=== PATIENT | male | born 1960 | race Caucasian/White ===

== ENCOUNTER 2016-12-03 09:34 | Emergency (ER) | payer BC ==
[2016-12-03] MEDS ORDERED: RX INFO: IV CONTRAST WAS GIVEN 1 EACH MISC MISCELLANE PRN (10:38)
[2016-12-03] MEDS ORDERED: HYDROmorphone 1 MG/ML 1 ML SYRINGE IVP STA (10:38)
[2016-12-03] MEDS ORDERED: SODIUM CHLORIDE 0.9% 1,000 ML IV STA (10:38)
[2016-12-03] MEDS ORDERED: IOHEXOL 350 MG/ML 25 ML BOTTLE (ORAL USE) PO PRN (10:38)
[2016-12-03] MEDS ORDERED: METOCLOPRAMIDE 5 MG/ML 2 ML VIAL IVP STA (10:38)
[2016-12-03] MEDS ORDERED: FAMOTIDINE 20 MG/2 ML VIAL IV STA (10:40)
--- NOTE | 2016-12-03 10:42 | ED ---
General Adult HPI - General Chief complaint: Abdominal Pain Stated complaint: POSS KIIDNEY STONES Time Seen by Provider: 12/03/16 10:30 Source: patient, family, RN notes reviewed Mode of arrival: wheelchair Limitations: no limitations - History of Present Illness Initial comments: Patient is a pleasant 56-year-old male presenting to the emergency department complaining of abdominal discomfort. Onset of symptoms was around 4 AM. Symptoms were fairly sudden onset. Discomfort is lower abdomen bilaterally with some rotation towards the lower back bilaterally. Patient did have similar symptoms around 12 years ago associated with kidney stone. No hematuria or dysuria. Patient has had nausea and vomiting. No constipation or diarrhea. No chest pain. Discomfort has been persistent and severe. Patient was sweaty earlier. No fever. Patient also does have a history of bariatric surgery and stomach reconstruction. - Related Data Home Medications Medication Instructions Recorded Confirmed Calcium Carbonate [Calcium] 600 mg PO DAILY 12/03/16 12/03/16 Cholecalciferol (Vitamin D3) 10,000 unit PO DAILY 12/03/16 12/03/16 [Vitamin D3] Ferrous Sulfate [Feosol] 325 mg PO DAILY 12/03/16 12/03/16 L.acidoph,Paracasei, B.lactis 1 cap PO DAILY 12/03/16 12/03/16 [Probiotic] Loperamide HCl [Imodium A-D] 2 - 4 mg PO BID PRN 12/03/16 12/03/16 Potassium 99 mg PO DAILY 12/03/16 12/03/16 Vitamin A 10,000 unit PO DAILY 12/03/16 12/03/16 Vitamin E 1,000 unit PO DAILY 12/03/16 12/03/16 Zinc 50 mg PO DAILY 12/03/16 12/03/16 Previous Rx's Medication Instructions Recorded Hydrocodone/Acetaminophen [[place] 2 each PO Q6HR PRN #20 tab 12/03/16 5-325] Metoclopramide HCl [Reglan] 10 mg PO Q6HR PRN #15 tablet 12/03/16 Allergies Allergy/AdvReac Type Severity Reaction Status Date / Time No Known Allergies Allergy Verified 12/03/16 13:08 Review of Systems ROS Statement: Those systems with pertinent positive or pertinent negative responses have been documented in the HPI. ROS Other: All systems not noted in ROS Statement are negative. Constitutional: Denies: fever Eyes: Denies: eye pain ENT: Denies: ear pain Respiratory: Denies: cough Cardiovascular: Denies: chest pain Endocrine: Denies: fatigue Gastrointestinal: Reports: abdominal pain, nausea, vomiting Genitourinary: Denies: urgency, dysuria, hematuria Musculoskeletal: Reports: back pain (From the abdomen) Skin: Denies: rash Past Medical History Past Medical History: No Reported History Additional Past Surgical History / Comment(s): duodenal sleeve General Exam Limitations: no limitations General appearance: alert, in no apparent distress Head exam: Present: atraumatic Eye exam: Present: normal appearance, PERRL ENT exam: Present: normal oropharynx Neck exam: Present: normal inspection Respiratory exam: Present: normal lung sounds bilaterally Cardiovascular Exam: Present: regular rate, normal rhythm GI/Abdominal exam: Present: soft, tenderness (Moderate tenderness lower abdomen and epigastric region.), normal bowel sounds. Absent: distended, guarding, rebound, rigid, pulsatile mass Extremities exam: Present: normal inspection Back exam: Present: tenderness (Mild tenderness lower back) Neurological exam: Present: alert Psychiatric exam: Present: normal affect, normal mood Skin exam: Absent: rash Course Vital Signs 12/03/16 10:02 Temperature 97 F L Pulse Rate 67 Respiratory 20 Rate Blood Pressure 164/77 O2 Sat by Pulse 98 Oximetry Medical Decision Making - Medical Decision Making Patient reexamined and improved. Patient states discomfort is tolerable and requests discharge. Patient is receptive to pain medication prior to discharge. Patient and family updated on results and need for follow-up. - Lab Data Result diagrams: 12/03/16 10:50 12/03/16 10:50 Lab Results 12/03/16 12/03/16 12/03/16 Range/Units 10:50 10:50 10:50 WBC 9.1 (3.8-10.6) k/uL RBC 4.61 (4.30-5.90) m/uL Hgb 14.1 (13.0-17.5) gm/dL Hct 42.5 (39.0-53.0) % MCV 92.3 (80.0-100.0) fL MCH 30.6 (25.0-35.0) pg MCHC 33.1 (31.0-37.0) g/dL RDW 12.9 (11.5-15.5) % Plt Count 188 (150-450) k/uL Neutrophils % 93 % Lymphocytes % 4 % Monocytes % 3 % Eosinophils % 0 % Basophils % 0 % Neutrophils # 8.4 H (1.3-7.7) k/uL Lymphocytes # 0.4 L (1.0-4.8) k/uL Monocytes # 0.2 (0-1.0) k/uL Eosinophils # 0.0 (0-0.7) k/uL Basophils # 0.0 (0-0.2) k/uL PT 11.1 (9.0-12.0) sec INR 1.1 (<1.1) APTT 24.7 (22.0-30.0) sec Sodium 141 (137-145) mmol/L Potassium 4.6 (3.5-5.1) mmol/L Chloride 103 (98-107) mmol/L Carbon Dioxide 28 (22-30) mmol/L Anion Gap 10 mmol/L BUN 13 (9-20) mg/dL Creatinine 0.79 (0.66-1.25) mg/dL Est GFR (MDRD) Af Amer >60 (>60 ml/min/1.73 sqM) Est GFR (MDRD) Non-Af >60 (>60 ml/min/1.73 sqM) Glucose 159 H (74-99) mg/dL Calcium 9.1 (8.4-10.2) mg/dL Total Bilirubin 1.0 (0.2-1.3) mg/dL AST 19 (17-59) U/L ALT 30 (21-72) U/L Alkaline Phosphatase 80 (38-126) U/L Total Protein 7.2 (6.3-8.2) g/dL Albumin 4.5 (3.5-5.0) g/dL Amylase 69 (30-110) U/L Lipase 93 (23-300) U/L Urine Color Urine Appearance (Clear) Urine pH (5.0-8.0) Ur Specific [place] (1.001-1.035) Urine Protein (Negative) Urine Glucose (UA) (Negative) Urine Ketones (Negative) Urine Blood (Negative) Urine Nitrate (Negative) Urine Bilirubin (Negative) Urine Urobilinogen (<2.0) mg/dL Ur Leukocyte Esterase (Negative) Urine RBC (0-5) /hpf Urine WBC (0-5) /hpf Ur Squamous Epith Cells (0-4) /hpf Urine Mucus (None) /hpf Urine Yeast (Budding) (None) /hpf 12/03/16 Range/Units 10:50 WBC (3.8-10.6) k/uL RBC (4.30-5.90) m/uL Hgb (13.0-17.5) gm/dL Hct (39.0-53.0) % MCV (80.0-100.0) fL MCH (25.0-35.0) pg MCHC (31.0-37.0) g/dL RDW (11.5-15.5) % Plt Count (150-450) k/uL Neutrophils % % Lymphocytes % % Monocytes % % Eosinophils % % Basophils % % Neutrophils # (1.3-7.7) k/uL Lymphocytes # (1.0-4.8) k/uL Monocytes # (0-1.0) k/uL Eosinophils # (0-0.7) k/uL Basophils # (0-0.2) k/uL PT (9.0-12.0) sec INR (<1.1) APTT (22.0-30.0) sec Sodium (137-145) mmol/L Potassium (3.5-5.1) mmol/L Chloride (98-107) mmol/L Carbon Dioxide (22-30) mmol/L Anion Gap mmol/L BUN (9-20) mg/dL Creatinine (0.66-1.25) mg/dL Est GFR (MDRD) Af Amer (>60 ml/min/1.73 sqM) Est GFR (MDRD) Non-Af (>60 ml/min/1.73 sqM) Glucose (74-99) mg/dL Calcium (8.4-10.2) mg/dL Total Bilirubin (0.2-1.3) mg/dL AST (17-59) U/L ALT (21-72) U/L Alkaline Phosphatase (38-126) U/L Total Protein (6.3-8.2) g/dL Albumin (3.5-5.0) g/dL Amylase (30-110) U/L Lipase (23-300) U/L Urine Color Light Red Urine Appearance Cloudy (Clear) Urine pH 5.5 (5.0-8.0) Ur Specific [place] 1.015 (1.001-1.035) Urine Protein 1+ H (Negative) Urine Glucose (UA) Negative (Negative) Urine Ketones 2+ H (Negative) Urine Blood Large H (Negative) Urine Nitrate Negative (Negative) Urine Bilirubin Negative (Negative) Urine Urobilinogen <2.0 (<2.0) mg/dL Ur Leukocyte Esterase Negative (Negative) Urine RBC >182 H (0-5) /hpf Urine WBC 12 H (0-5) /hpf Ur Squamous Epith Cells 1 (0-4) /hpf Urine Mucus Rare H (None) /hpf Urine Yeast (Budding) Moderate H (None) /hpf - Radiology Data Radiology results: report reviewed (Computed tomography scan of the abdomen and pelvis shows 6 mm stone left UVJ.), image reviewed (Abdominal x-ray shows pelvic calcification) Disposition Clinical Impression: Ureterolithiasis Disposition: HOME SELF-CARE Condition: Stable Instructions: Kidney Stones (ED) Additional Instructions: Please follow-up with primary care physician and urology next week. Return for intolerable pain, intractable vomiting, fevers, worsening symptoms or other concerns. Prescriptions: Hydrocodone/Acetaminophen [[place] 5-325] 2 each PO Q6HR PRN #20 tab PRN Reason: Pain Metoclopramide HCl [Reglan] 10 mg PO Q6HR PRN #15 tablet PRN Reason: Nausea Referrals: Bob Santiago MD [Primary Care Provider] - 1-2 days Yaw Hagan MD [STAFF PHYSICIAN] - 1-2 days
[2016-12-03 11:19] LABS: Basophils % (A) 0 %; CH 31.7; CHCM 34.6; Eosinophils % (A) 0 %; HCT 42.5 % (39.0-53.0); HDW 2.81; HGB 14.1 gm/dL (13.0-17.5); Luc # (Auto) 0.04; Luc % (Auto) 0; Lymphocytes # (A) 0.4 k/uL (1.0-4.8); Lymphocytes % (A) 4 %; MCH 30.6 pg (25.0-35.0); MCHC 33.1 g/dL (31.0-37.0); MCV 92.3 fL (80.0-100.0); Mean Platelet Volume 8.4; Monocytes # (A) 0.2 k/uL (0-1.0); Monocytes % (A) 3 %; Neutrophils # (A) 8.4 k/uL (1.3-7.7); Neutrophils % (A) 93 %; RBC 4.61 m/uL (4.30-5.90); RDW 12.9 % (11.5-15.5); WBC 9.1 k/uL (3.8-10.6); WBC (Perox) 9.46
[2016-12-03 11:27] LABS: Appearance,Urine Cloudy (Clear); Bilirubin,Urine Negative (Negative); Glucose,Urine (UA) Negative (Negative); Ketones,Urine 2+ (Negative); Leukocyte Esterase,Urine Negative (Negative); Mucus,Urine Rare /hpf; Nitrite,Urine Negative (Negative); PH, Urine 5.5 (5.0-8.0); Particle Count 5330; Protein,Urine 1+ (Negative); RBC,Urine >182 /hpf (0-5); Specific Gravity,Urine 1.015 (1.001-1.035); Squamous Epithelial Cell,Urine 1 /hpf (0-4); UA Billing (MACRO vs. MICRO) MICRO; Urobilinogen,Urine <2.0 mg/dL (<2.0); WBC,Urine 12 /hpf (0-5)
[2016-12-03 11:29] LABS: ALT 30 U/L (21-72); AST 19 U/L (17-59); Alkaline Phosphatase 80 U/L (38-126); Amylase 69 U/L (30-110); Anion Gap 10 mmol/L; Blood Urea Nitrogen 13 mg/dL (9-20); Calcium 9.1 mg/dL (8.4-10.2); Carbon Dioxide 28 mmol/L (22-30); Chloride 103 mmol/L (98-107); Glucose 159 mg/dL (74-99); Non-African American GFR(MDRD) >60 (>60 ml/min/1.73 sqM); Potassium 4.6 mmol/L (3.5-5.1); Sodium 141 mmol/L (137-145); Total Protein 7.2 g/dL (6.3-8.2)
[2016-12-03 11:39] LABS: INR 1.1 (<1.1); Partial Thromboplastin Time 24.7 sec (22.0-30.0); Prothrombin Time 11.1 sec (9.0-12.0)
--- NOTE | 2016-12-03 12:06 | XR ---
EXAMINATION TYPE: XR abdomen 1V DATE OF EXAM: 12/03/2016 11:33 AM COMPARISON: NONE INDICATION: Pain TECHNIQUE: Single view abdomen upright position FINDINGS: There is a normal bowel gas pattern. Psoas margins are normal. No organomegaly is present. IMPRESSION: 1. Unremarkable Abdomen
--- NOTE | 2016-12-03 12:55 | CT ---
EXAMINATION TYPE: CT abdomen pelvis w con DATE OF EXAM: 12/03/2016 12:24 PM COMPARISON: NONE INDICATION: Bilateral flank pain DLP: 572.5 mGycm, Automated exposure control for dose reduction was used. CONTRAST: 100 ml mL of Omnipaque 300. Study performed with Oral Contrast TECHNIQUE: Axial images were obtained from above the diaphragm to the pubic rami in the axial plane a t 5 mm thick sections. Reconstructed images are reviewed on the computer in the coronal plane. FINDINGS: Limited CT sections are obtained the lung bases. The lung bases are clear. Small hiatal hernia is p resent. CT ABDOMEN: Post gastric surgery is present. Liver: Normal Spleen: Normal Pancreas: Normal Adrenal glands: The adrenal glands are normal. Gallbladder: Normal Kidneys: There is delayed excretion from the left kidney compared to the right. There is a mild right hydronephrosis and right hydroureter. At the left ureterovesical junction there is an obstructing 0. 6 cm calcification. No masses are evident. Cortical renal cyst is present on the left kidney. Delaye d images were obtained through the kidneys, which remain unremarkable. Aorta: Vascular calcification is within the aorta. Inferior vena cava: Normal. CT PELVIS: Loops of bowel within the abdomen and pelvis are normal. Appendix: Not visualized Urinary bladder: Normal. Genitourinary structures: Calcification at the left ureterovesical junction. Osseous structures: No suspicious lytic or sclerotic lesions. IMPRESSIONS: 1. 0.6 cm left ureterovesical junction stone causing mild left hydronephrosis and delayed excretion on the left compared to the right.
[2016-12-03] MEDS ORDERED: KETOROLAC 30 MG/ML 1 ML VIAL IVP STA (13:50)
[2016-12-03] MEDS ORDERED: ONDANSETRON 4 MG/2 ML VIAL IVP STA (13:50)
[2016-12-03 14:10] VITALS: BP 130/80; PULSE 81; RESP 18; TEMP 97.9
== END 2016-12-03 14:14 | disposition home or self-care (01) ==
LOC: EC 09:34
DX: N20.1 Calculus of ureter (principal); Z87.442 Personal history of urinary calculi; Z98.84 Bariatric surgery status; Z79.899 Other long term (current) drug therapy
CPT/HCPCS: 99284; 96374; 96375; 96361; 36415; 80053; 82150; 83690; 85025; 85610; 85730; 81001; 74000; 74177; J2765; J2405; J1885; J1170; Q9967

== ENCOUNTER → 2019-10-09 | Outpatient (CLI) | payer BC ==
[2019-10-09 07:50] LABS: Prothrombin Time 10.8 sec (9.0-12.0)
[2019-10-09 08:44] LABS: Basophils % (A) 1 %; Eosinophils # (A) 0.1 k/uL (0-0.7); Eosinophils % (A) 3 %; HCT 39.9 % (39.0-53.0); HGB 13.4 gm/dL (13.0-17.5); Lymphocytes # (A) 1.1 k/uL (1.0-4.8); Lymphocytes % (A) 23 %; MCH 32.3 pg (25.0-35.0); MCHC 33.7 g/dL (31.0-37.0); MCV 95.8 fL (80.0-100.0); Mean Platelet Volume 6.8; Monocytes # (A) 0.4 k/uL (0-1.0); Monocytes % (A) 8 %; Neutrophils # (A) 2.9 k/uL (1.3-7.7); Neutrophils % (A) 63 %; Platelet Count 195 k/uL (150-450); RBC 4.16 m/uL (4.30-5.90); RDW 12.4 % (11.5-15.5); WBC 4.6 k/uL (3.8-10.6)
[2019-10-09 11:28] LABS: % Iron Saturation 28.52 (15.00-50.00); ALT 39 U/L (10-49); AST 36 U/L (14-35); African American GFR (CKD) 114.9 (60.0-200.0); Albumin/Globulin Ratio 2.11 (1.60-3.17); Alkaline Phosphatase 67 U/L (41-126); Calcium 8.7 mg/dL (8.7-10.3); Chloride 108 mmol/L (96-109); Chol/HDL Ratio 2.52; Cholesterol 116 mg/dL (0-200); Globulin 1.8 g/dL (1.6-3.3); Glucose 117 mg/dL (70-110); Iron 79 ug/dL (65-175); Magnesium 1.8 mg/dL (1.5-2.4); Non-African American GFR(CKD) 99.2 (60.0-200.0); Potassium 4.3 mmol/L (3.5-5.5); Sodium 141 mmol/L (135-145); Total Bilirubin 0.7 mg/dL (0.3-1.2); Total Iron Binding Capacity 277 ug/dL (228-460); Total Protein 5.6 g/dL (6.2-8.2); Triglycerides <50.0 mg/dL (0.0-149.0); Uric Acid 3.8 mg/dL (3.7-8.7)
[2019-10-09 11:36] LABS: Ferritin 116.2 ng/mL (22.0-322.0)
[2019-10-09 11:37] LABS: Folate, Serum 3.3 ng/mL
[2019-10-11 13:12] LABS: Zinc, Serum 45 ug/dL (60-130)
[2019-10-12 08:18] LABS: Vit B1(Thiamine) 63 ug/L (38-122)
[2019-10-12 09:25] LABS: Vitamin A 36 ug/dL (38-106)
[2019-10-12 09:26] LABS: Vitamin E (Alpha Tocopherol) 760 ug/dL (500-1800)
[2019-10-14 17:41] LABS: Selenium 117 mcg/L (63-160)
== END | disposition home or self-care (01) ==
LOC: LABWHC1 06:54
PROVIDERS: ATTEND Physician Assistant
DX: Z00.01 Encounter for general adult medical examination with abnormal findings (principal); Z13.220 Encounter for screening for lipoid disorders; Z12.5 Encounter for screening for malignant neoplasm of prostate; Z98.84 Bariatric surgery status
CPT/HCPCS: 84255; 84425; 80061; 80053; 82607; 84446; 82728; 82525; 82746; 83540; 83550; 83735; 84550; 84590; 84630; 85025; 85610; 82306; 83970; 36415; G0103

== ENCOUNTER → 2019-12-19 | Outpatient (CLI) | payer BC ==
[2019-12-19 16:01] LABS: Hemoglobin A1C 4.6 % (4.0-6.0)
[2019-12-20 14:06] LABS: Zinc, Serum 48 ug/dL (60-130)
== END | disposition home or self-care (01) ==
LOC: LABWHC1 07:52
PROVIDERS: ATTEND Physician Assistant
DX: E61.0 Copper deficiency (principal); R73.01 Impaired fasting glucose; E60 Dietary zinc deficiency; R00.2 Palpitations
CPT/HCPCS: 36415; 82525; 83036; 84443; 84630

== ENCOUNTER 2022-05-04 12:57 | Observation (INO) | payer BC, OTHER ==
[2022-05-04] MEDS ORDERED: SODIUM CHLORIDE 0.9% 1,000 ML IV STA (15:22)
--- NOTE | 2022-05-04 15:35 | ED ---
Nausea/Vomiting/Diarrhea HPI - General Chief complaint: Nausea/Vomiting/Diarrhea Stated complaint: dehydration Time Seen by Provider: 05/04/22 15:06 Source: patient, RN notes reviewed Mode of arrival: ambulatory Limitations: no limitations - History of Present Illness Initial comments: Patient is a 62-year-old male presents to the emergency room at the direction of his primary care provider after having 4 days of nausea vomiting, multiple liquid diarrhea stools, fevers at bedtime with night sweats. He does have a past medical history significant for gastrectomy with significant intestinal shortening all elective for obesity. He reports that he had these procedures completed in 2011 at that time he weighed approximately 300+ pounds and was a an insulin-dependent diabetic on hypertensive and hyperlipidemic treatment. He reports that since his weight loss he has been on no medications other than supplementations secondary to malabsorption. He reports that he typically has several loose bowel movements a day since his bariatric surgery but notes they are typically not as watery or frequent and are without significant abdominal cramping usually. He reports that he has had no exposure to influenza or correlate. He does have a history of nephrolithiasis however he denies any flank pain but does note decreased urine output over the last several days. He complains of diffuse abdominal cramping but no tenderness on palpation. - Related Data Home Medications Medication Instructions Recorded Confirmed Calcium Carbonate [Calcium] 600 mg PO DAILY 12/03/16 12/03/16 Cholecalciferol (Vitamin D3) 10,000 unit PO DAILY 12/03/16 12/03/16 [Vitamin D3] Ferrous Sulfate [Feosol] 325 mg PO DAILY 12/03/16 12/03/16 L.acidoph,Paracasei, B.lactis 1 cap PO DAILY 12/03/16 12/03/16 [Probiotic] Loperamide HCl [Imodium A-D] 2 - 4 mg PO BID PRN 12/03/16 12/03/16 Potassium 99 mg PO DAILY 12/03/16 12/03/16 Vitamin A (10,000 Aj=3617 Mcg) 10,000 unit PO DAILY 12/03/16 12/03/16 Vitamin E (Dl,Tocopheryl Acet) 1,000 unit PO DAILY 12/03/16 12/03/16 [Vitamin E] Zinc 50 mg PO DAILY 12/03/16 12/03/16 Previous Rx's Medication Instructions Recorded Hydrocodone/Acetaminophen [[place] 2 each PO Q6HR PRN #20 tab 12/03/16 5-325] Metoclopramide HCl [Reglan] 10 mg PO Q6HR PRN #15 tablet 12/03/16 Allergies Allergy/AdvReac Type Severity Reaction Status Date / Time No Known Allergies Allergy Verified 05/04/22 14:55 Review of Systems ROS Statement: Those systems with pertinent positive or pertinent negative responses have been documented in the HPI. ROS Other: All systems not noted in ROS Statement are negative. Past Medical History Past Medical History: No Reported History, GERD/Reflux History of Any Multi-Drug Resistant Organisms: None Reported Past Surgical History: Tonsillectomy Additional Past Surgical History / Comment(s): duodenal sleeve man made, 8oz pouch, 14inches of intestines, experimental bariatric surgery 2012 Past Psychological History: No Psychological Hx Reported Smoking Status: Light tobacco smoker Past Alcohol Use History: Rare Past Drug Use History: Marijuana General Exam Limitations: no limitations General appearance: alert, in no apparent distress Head exam: Present: atraumatic, normocephalic, normal inspection Eye exam: Present: normal appearance, PERRL, EOMI. Absent: scleral icterus, conjunctival injection, periorbital swelling ENT exam: Present: normal exam, mucous membranes moist Neck exam: Present: normal inspection. Absent: tenderness, meningismus, lymphadenopathy Respiratory exam: Present: normal lung sounds bilaterally. Absent: respiratory distress, wheezes, rales, rhonchi, stridor Cardiovascular Exam: Present: regular rate, normal rhythm, normal heart sounds. Absent: systolic murmur, diastolic murmur, rubs, gallop, clicks GI/Abdominal exam: Present: soft, normal bowel sounds. Absent: distended, tenderness, guarding, rebound, rigid, organomegaly, mass Rectal exam: Present: deferred Extremities exam: Present: normal inspection. Absent: pedal edema, joint swelling Neurological exam: Present: alert, oriented X3, CN II-XII intact Psychiatric exam: Present: normal affect, normal mood Skin exam: Present: warm, dry, intact, pallor Course Vital Signs 05/04/22 05/04/22 14:47 17:26 Temperature 98.2 F 97.4 F L Pulse Rate 75 60 Respiratory 18 18 Rate Blood Pressure 125/89 121/71 O2 Sat by Pulse 99 98 Oximetry - Reevaluation(s) Reevaluation #1: CBC unremarkable, BUN normal creatinine slightly elevated at 1.22 likely the baseline CKD status stage II. Still awaiting urine results. Covid negative, still awaiting influenza results. Given lack of infectious etiology evidence and severity of nausea and vomiting with previous inability to vomit at this time will check computed tomography scan in the setting of previous significant abdominal surgery. Time: 17:08 Reevaluation #2: CT of the abdomen with worsening of dilated gallbladder. In the setting of decreased urine output, nausea, vomiting and intermittent abdominal pain will plan for further evaluation by surgery. Patient requests Dr. Cordova as surgeon. Case discussed with Dr. Cordova. Dr. Cordova advised keep patient nothing by mouth, order ultrasound of the abdomen and admit patient to medicine. Dr. Reji padilla for his primary care doctor Pamela notified of medical admission. Time: 21:29 Medical Decision Making - Medical Decision Making Will defer to imaging until lab studies are resulted. We'll check CBC, CMP, urinalysis, amylase, lipase along with COVID and influenza swabs. Given decreased urinary output will start on IV fluids with one normal saline bolus at this time and evaluate for electrolyte and further hydration needs after CMP resulted. - Lab Data Result diagrams: 05/04/22 16:06 05/04/22 16:06 Lab Results 05/04/22 05/04/22 05/04/22 Range/Units 16:06 16:06 16:06 WBC 4.0 (3.8-10.6) k/uL RBC 4.31 (4.30-5.90) m/uL Hgb 14.4 (13.0-17.5) gm/dL Hct 42.3 (39.0-53.0) % MCV 98.2 (80.0-100.0) fL MCH 33.4 (25.0-35.0) pg MCHC 34.0 (31.0-37.0) g/dL RDW 13.1 (11.5-15.5) % Plt Count 207 (150-450) k/uL MPV 8.5 Neutrophils % (Manual) 49 % Band Neuts % (Manual) 10 % Lymphocytes % (Manual) 17 % Monocytes % (Manual) 23 % Basophils % (Manual) 1 % Neutrophils # (Manual) 2.30 (1.3-7.7) k/uL Lymphocytes # (Manual) 0.68 L (1.0-4.8) k/uL Monocytes # (Manual) 0.92 (0-1.0) k/uL Basophils # (Manual) 0.04 (0-0.2) k/uL Nucleated RBCs 0 (0-0) /100 WBC Manual Slide Review Performed RBC Morphology Normal Sodium 137 (137-145) mmol/L Potassium 3.7 (3.5-5.1) mmol/L Chloride 110 H (98-107) mmol/L Carbon Dioxide 20 L (22-30) mmol/L Anion Gap 7 mmol/L BUN 18 (9-20) mg/dL Creatinine 1.22 (0.66-1.25) mg/dL Est GFR (CKD-EPI)AfAm 74 (>60 ml/min/1.73 sqM) Est GFR (CKD-EPI)NonAf 64 (>60 ml/min/1.73 sqM) Glucose 128 H (74-99) mg/dL Calcium 8.5 (8.4-10.2) mg/dL Total Bilirubin 0.9 (0.2-1.3) mg/dL AST 15 L (17-59) U/L ALT 26 (4-49) U/L Alkaline Phosphatase 61 (38-126) U/L Total Protein 6.5 (6.3-8.2) g/dL Albumin 3.8 (3.5-5.0) g/dL Amylase 33 (30-110) U/L Lipase 37 (23-300) U/L Urine Color Urine Appearance (Clear) Urine pH (5.0-8.0) Ur Specific [place] (1.001-1.035) Urine Protein (Negative) Urine Glucose (UA) (Negative) Urine Ketones (Negative) Urine Blood (Negative) Urine Nitrite (Negative) Urine Bilirubin (Negative) Urine Urobilinogen (<2.0) mg/dL Ur Leukocyte Esterase (Negative) Urine RBC (0-5) /hpf Urine WBC (0-5) /hpf Ur Squamous Epith Cells (0-4) /hpf Hyaline Casts (0-2) /lpf Urine Mucus (None) /hpf Coronavirus (PCR) (Not Detectd) Influenza Type A RNA Not Detected (Not Detectd) Influenza Type B (PCR) Not Detected (Not Detectd) 05/04/22 05/04/22 Range/Units 16:06 18:20 WBC (3.8-10.6) k/uL RBC (4.30-5.90) m/uL Hgb (13.0-17.5) gm/dL Hct (39.0-53.0) % MCV (80.0-100.0) fL MCH (25.0-35.0) pg MCHC (31.0-37.0) g/dL RDW (11.5-15.5) % Plt Count (150-450) k/uL MPV Neutrophils % (Manual) % Band Neuts % (Manual) % Lymphocytes % (Manual) % Monocytes % (Manual) % Basophils % (Manual) % Neutrophils # (Manual) (1.3-7.7) k/uL Lymphocytes # (Manual) (1.0-4.8) k/uL Monocytes # (Manual) (0-1.0) k/uL Basophils # (Manual) (0-0.2) k/uL Nucleated RBCs (0-0) /100 WBC Manual Slide Review RBC Morphology Sodium (137-145) mmol/L Potassium (3.5-5.1) mmol/L Chloride (98-107) mmol/L Carbon Dioxide (22-30) mmol/L Anion Gap mmol/L BUN (9-20) mg/dL Creatinine (0.66-1.25) mg/dL Est GFR (CKD-EPI)AfAm (>60 ml/min/1.73 sqM) Est GFR (CKD-EPI)NonAf (>60 ml/min/1.73 sqM) Glucose (74-99) mg/dL Calcium (8.4-10.2) mg/dL Total Bilirubin (0.2-1.3) mg/dL AST (17-59) U/L ALT (4-49) U/L Alkaline Phosphatase (38-126) U/L Total Protein (6.3-8.2) g/dL Albumin (3.5-5.0) g/dL Amylase (30-110) U/L Lipase (23-300) U/L Urine Color Yellow Urine Appearance Clear (Clear) Urine pH 6.0 (5.0-8.0) Ur Specific [place] >1.050 H (1.001-1.035) Urine Protein 1+ H (Negative) Urine Glucose (UA) Negative (Negative) Urine Ketones Negative (Negative) Urine Blood Negative (Negative) Urine Nitrite Negative (Negative) Urine Bilirubin Negative (Negative) Urine Urobilinogen <2.0 (<2.0) mg/dL Ur Leukocyte Esterase Negative (Negative) Urine RBC 1 (0-5) /hpf Urine WBC 4 (0-5) /hpf Ur Squamous Epith Cells 1 (0-4) /hpf Hyaline Casts 25 H (0-2) /lpf Urine Mucus Moderate H (None) /hpf Coronavirus (PCR) Not Detected (Not Detectd) Influenza Type A RNA (Not Detectd) Influenza Type B (PCR) (Not Detectd) - Radiology Data Radiology results: report reviewed, image reviewed CT abdomen pelvis with contrast demonstrates previous surgery. Dilated gallbladder with possible correlation to gallbladder dysfunction or terra cystitis. No dilated ducts. Nonobstructing renal calculi. There is clearing of left-sided obstruction compared to old exam. Dilated gallbladder slightly worse than old exam Disposition Clinical Impression: Cholecystitis Disposition: ADMITTED IP TO THIS HOSP Condition: Stable Is patient prescribed a controlled substance at d/c from ED?: No Referrals: Bob Santiago MD [Primary Care Provider] - 1-2 days Time of Disposition: 21:29
[2022-05-04 16:30] LABS: HCT 42.3 % (39.0-53.0); HGB 14.4 gm/dL (13.0-17.5); MCH 33.4 pg (25.0-35.0); MCV 98.2 fL (80.0-100.0); Mean Platelet Volume 8.5; Platelet Count 207 k/uL (150-450); RBC 4.31 m/uL (4.30-5.90); RDW 13.1 % (11.5-15.5)
[2022-05-04 16:40] LABS: Albumin 3.8 g/dL (3.5-5.0); Calcium 8.5 mg/dL (8.4-10.2); Potassium 3.7 mmol/L (3.5-5.1); Total Bilirubin 0.9 mg/dL (0.2-1.3); Total Protein 6.5 g/dL (6.3-8.2)
[2022-05-04 17:44] LABS: Band Neutrophils % 10 %; Basophils # (M) 0.04 k/uL (0-0.2); Lymphocytes # (M) 0.68 k/uL (1.0-4.8); Monocytes # (M) 0.92 k/uL (0-1.0); Neutrophils % (M) 49 %; Nucleated Red Blood Cells 0 /100 WBC (0-0); Total Cells Counted 100
[2022-05-04 17:45] LABS: RBC Morphology Normal
[2022-05-04 18:42] LABS: Appearance,Urine Clear (Clear); Bilirubin,Urine Negative (Negative); Blood,Urine Negative (Negative); Color,Urine Yellow; Glucose,Urine (UA) Negative (Negative); Hyaline Casts,Urine 25 /lpf (0-2); Ketones,Urine Negative (Negative); Leukocyte Esterase,Urine Negative (Negative); Mucus,Urine Moderate /hpf; Nitrite,Urine Negative (Negative); Protein,Urine 1+ (Negative); RBC,Urine 1 /hpf (0-5); Squamous Epithelial Cell,Urine 1 /hpf (0-4); Urobilinogen,Urine <2.0 mg/dL (<2.0); WBC,Urine 4 /hpf (0-5)
--- NOTE | 2022-05-04 18:49 | CT ---
EXAMINATION TYPE: CT abdomen pelvis w con DATE OF EXAM: 05/04/2022 COMPARISON: 12/03/2016 HISTORY: abdominal pain, diarrhea, fever, urine retention CT DLP: 984.5 mGycm Automated exposure control for dose reduction was used. CONTRAST: Performed with IV Contrast, patient injected with 100 mL of Isovue 300. Images obtained from the diaphragm to the floor the pelvis with IV contrast. The lung bases are clear of infiltrate. There is previous surgery at the posterior gastric fundus. Ga llbladder is large and measures 4.6 cm in diameter. Liver shows no focal defect. The bile ducts are n ot dilated. Spleen is intact. There is no pancreatic mass. There is no adrenal mass. Kidneys of normal size. There is no hydronephrosis. There is 2 mm calculus upper pole left kidney. There is a 1.5 cm cortical cyst lower pole left kidney. There is 3 mm calculu s lower pole right kidney. No retroperitoneal adenopathy. Ureters are not dilated. The bladder distends smoothly. No inguinal hernia. No free fluid in the pelvis. No pelvic mass. Lumbar vertebra show a first-degree L4-5 spondylolisthesis. 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 No l umbar compression fracture. There is moderate narrowing of L4-5 disc space. The bony pelvis appears i ntact. The hip joints are intact there's distended fluid-filled loop of bowel in the right lower quad rant with previous surgery. I do not suspect a mechanical bowel obstruction. No free air. No ascites. IMPRESSION: Previous surgery. Dilated gallbladder could relate to gallbladder dysfunction or cholecystitis. No di lated ducts. Nonobstructing renal calculi. There is clearing of the left side obstruction compared to old exam. Dilated gallbladder slightly worse than old exam.
[2022-05-04 19:18] LABS: Specific Gravity,Urine >1.050 (1.001-1.035)
[2022-05-04] MEDS ORDERED: NALOXONE 0.4 MG/ML 1 ML VIAL IV PRN (21:18)
[2022-05-04] MEDS ORDERED: ONDANSETRON 4 MG/2 ML VIAL IVP PRN (21:18)
[2022-05-04] MEDS: PANTOPRAZOLE 40 MG/10 ML VIAL IV SCH (22:21)
[2022-05-04] MEDS: DEXTROSE 5%-0.45% NACL 1,000 ML IV SCH (22:22)
--- NOTE | 2022-05-05 07:55 | US ---
EXAMINATION TYPE: US abdomen limited DATE OF EXAM: 05/05/2022 COMPARISON: CT CLINICAL HISTORY: Cholecystitis. Cholecystitis. Hx gastric surgery. EXAM MEASUREMENTS: Liver Length: 13.4 cm Gallbladder Wall: 0.20 cm CBD: 0.46 cm Right Kidney: 12.3 x 6.1 x 4.9 cm Limited due to overlying bowel gas. Pancreas: Limited due to gas. Liver: Appears coarse with increased echogenicity. Gallbladder: Appears dilated measuring 10.7 cm in length and 4.2 cm in width. Multiple hyperechoic f oci with posterior shadowing seen within the gallbladder. Evidence for sonographic Jauregui's sign: No CBD: Portions seen appear wnl Right Kidney: Measures upper limits versus minimally enlarged. Appearance of possible column of Berti n upper-mid pole. Hyperechoic focus seen lower pole: 0.3 x 0.4 x 0.3 cm. IMPRESSION: 1. Nonobstructing right renal stone. 2. Prominent gallbladder with cholelithiasis
[2022-05-05] MEDS: PANTOPRAZOLE 40 MG/10 ML VIAL IV SCH (10:14)
[2022-05-05] MEDS ORDERED: PANTOPRAZOLE 40 MG TABLET PO SCH (10:45)
--- NOTE | 2022-05-05 11:15 | P.GSCN ---
History of Present Illness Consult date: 05/05/22 History of present illness: CHIEF COMPLAINT: Diarrhea and nausea HISTORY OF PRESENT ILLNESS: This is a 62-year-old male who presented to the emergency room with complaints of severe diarrhea with multiple stools for the last 4 days. He also has been experiencing abdominal discomfort, fever as high as 101 at home, muscle aches, nausea and headache. Patient also was having low urine output. He felt dehydrated. And was referred by his PCP to come into the ER for further evaluation. Patient also has been complaining of indigestion- type symptoms for several months. Patient denies any right upper quadrant abdominal pain after eating. He had a computed tomography scan of the abdomen and pelvis done shows dilated gallbladder could relate to gallbladder dysfunc tion or cholecystitis. No dilated ducts. Nonobstructive renal calculi. There is clearing of the left-sided obstruction compared to old exam. Dilated gallbladder slightly worse than old exam. Abdominal ultrasound shows prominent gallbladder with cholelithiasis. Negative Jauregui sign. Patient reports that he is feeling better since admission and receiving IV fluids. Diarrhea has stopped. He has no abdominal pain. He does have a prior bariatric surgery 2012 with a duodenal switch which included gastrectomy and removal 14 inches of intestine. PAST MEDICAL HISTORY: Gerd PAST SURGICAL HISTORY: See list. MEDICATIONS: See list. ALLERGIES: See list. SOCIAL HISTORY: No illicit drug use. Smoker. Marijuana use. REVIEW OF SYSTEMS: CONSTITUTIONAL: Denies fever or chills. HEENT: Denies blurred vision, vision changes, or eye pain. Denies hemoptysis CARDIOVASCULAR: Denies chest pain or pressure. RESPIRATORY: No shortness of breath. GASTROINTESTINAL: See HPI for pertinent findings HEMATOLOGIC: Denies bleeding disorders. GENITOURINARY: Denies any blood in urine or increased urinary frequency. SKIN: Denies pruitis. Denies rash. PHYSICAL EXAM: VITAL SIGNS: Reviewed GENERAL: Well-developed in no acute distress. HEENT: No sclera icterus. Extraocular movements grossly intact. Moist buccal mucosa. Head is atraumatic, normocephalic. No nasal drainage. ABDOMEN: Soft. Nondistended. Nontender NEUROLOGIC: Alert and oriented. Cranial nerves II through XII grossly intact. LABORATORY DATA: WBC is 4.0 hgb 14.4 platelets 207 Sodium 137 potassium 3.7 creatinine 1.22 AST 15 ALT 26 alk phos 61 Lipase 37 Covid and influenza screening not detected IMAGING: Computed tomography scan of abdomen and ultrasound as stated above ASSESSMENT: 1. Prominent gallbladder with gallstones noted on abdominal ultrasound. No RUQ pain 2. Diarrhea, nausea with muscle aches, fever and headache 3. Indigestion 4. History of GERD 5. History of bariatric surgery PLAN: -Further recommendations forthcoming per surgeon -Keep patient nothing by mouth -Continue IV fluids -Continue supportive care Thank you for this consultation Physician Fireworks Assembler note has been reviewed by physician. Signing provider agrees with the documented findings, assessment, and plan of care. I have personally seen and examined the patient, reviewed the DICTATING MACHINE TRANSCRIBER /PAs history, exam and MDM and agree with the assessment and plan as written. Based on total visit time, I have performed more than 50% of the visit. As above: Patient presents to the hospital with complaints of abdominal pain, nausea, fevers. Patient with history of previous duodenal switch 4-5 years ago. Patient states that now he thinks about it further he has had pain in the right upper quadrant. During our evaluation he had 2 episodes of spastic pain right upper quadrant. Ultrasound shows a distended gallbladder with gallstones. Patient has not had vomiting. CAT scan shows post-bariatric surgery changes. The patient does have a hiatal hernia with his staple line extending above the diaphragm but this is unchanged from CAT scan performed in 2017. No bowel wall thickening is noted. Labs are relatively unimpressive. On examination patient has mild upper abdominal tenderness. Options discussed with the patient and his . Cholecystitis certainly remains within the differential. We'll proceed with laparoscopic cholecystectomy, possible open at this time. Case discussed with Dr. Mendoza. He would like the patient's previous bypass surgery evaluated further. Will order upper GI small bowel series for tomorrow. Risks of bleeding, infection, bile leak, bile duct injury, retained common bile duct st one, trocar injury, conversion to an open procedure, hernia, bowel perforation, anesthesia related complications were reviewed. The patient understands and wishes to proceed. Past Medical History Past Medical History: No Reported History, GERD/Reflux History of Any Multi-Drug Resistant Organisms: None Reported Past Surgical History: Tonsillectomy Additional Past Surgical History / Comment(s): duodenal sleeve man made, 8oz pouch, 14inches of intestines, experimental bariatric surgery 2012 Past Anesthesia/Blood Transfusion Reactions: No Reported Reaction Past Psychological History: No Psychological Hx Reported Smoking Status: Light tobacco smoker Past Alcohol Use History: Rare Past Drug Use History: Marijuana Medications and Allergies Home Medications Medication Instructions Recorded Confirmed Type Calcium Carbonate [Calcium] 1,200 mg PO DAILY 12/03/16 05/04/22 History Cholecalciferol (Vitamin D3) 10,000 unit PO DAILY 12/03/16 05/04/22 History [Vitamin D3] Ferrous Sulfate [Feosol] 325 mg PO DAILY 12/03/16 05/04/22 History L.acidoph,Paracasei, B.lactis 1 cap PO DAILY 12/03/16 05/04/22 History [Probiotic] Potassium 99 mg PO DAILY 12/03/16 05/04/22 History Vitamin A (10,000 Aq=3358 Mcg) 10,000 unit PO DAILY 12/03/16 05/04/22 History Vitamin E (Dl,Tocopheryl Acet) 1,000 unit PO DAILY 12/03/16 05/04/22 History [Vitamin E] Zinc 50 mg PO DAILY 12/03/16 05/04/22 History Ascorbic Acid [Vitamin C] 1,000 mg PO DAILY 05/04/22 05/04/22 History Copper Supplement 1 tab PO DAILY 05/04/22 05/04/22 History Cyanocobalamin (Vitamin B-12) 1,000 mcg PO DAILY 05/04/22 05/04/22 History [Vitamin B-12] Famotidine [Pepcid] 40 mg PO DAILY 05/04/22 05/04/22 History Omeprazole 40 mg PO DAILY 05/04/22 05/04/22 History Allergies Allergy/AdvReac Type Severity Reaction Status Date / Time No Known Allergies Allergy Verified 05/04/22 21:37 Surgical - Exam Vital Signs Temp Pulse Resp BP Pulse Ox 98.2 F 75 18 125/89 99 05/04/22 14:47 05/04/22 14:47 05/04/22 14:47 05/04/22 14:47 05/04/22 14:47 Results - Labs 05/04/22 16:06 05/04/22 16:06 Abnormal Lab Results - Last 24 Hours (Table) 05/04/22 05/04/22 05/04/22 Range/Units 16:06 16:06 18:20 Lymphocytes # (Manual) 0.68 L (1.0-4.8) k/uL Chloride 110 H (98-107) mmol/L Carbon Dioxide 20 L (22-30) mmol/L Glucose 128 H (74-99) mg/dL AST 15 L (17-59) U/L Ur Specific [place] >1.050 H (1.001-1.035) Urine Protein 1+ H (Negative) Hyaline Casts 25 H (0-2) /lpf Urine Mucus Moderate H (None) /hpf Diabetes panel 05/04/22 Range/Units 16:06 Sodium 137 (137-145) mmol/L Potassium 3.7 (3.5-5.1) mmol/L Chloride 110 H (98-107) mmol/L Carbon Dioxide 20 L (22-30) mmol/L BUN 18 (9-20) mg/dL Creatinine 1.22 (0.66-1.25) mg/dL Glucose 128 H (74-99) mg/dL Calcium 8.5 (8.4-10.2) mg/dL AST 15 L (17-59) U/L ALT 26 (4-49) U/L Alkaline Phosphatase 61 (38-126) U/L Total Protein 6.5 (6.3-8.2) g/dL Albumin 3.8 (3.5-5.0) g/dL Calcium panel 05/04/22 Range/Units 16:06 Calcium 8.5 (8.4-10.2) mg/dL Albumin 3.8 (3.5-5.0) g/dL Pituitary panel 05/04/22 Range/Units 16:06 Sodium 137 (137-145) mmol/L Potassium 3.7 (3.5-5.1) mmol/L Chloride 110 H (98-107) mmol/L Carbon Dioxide 20 L (22-30) mmol/L BUN 18 (9-20) mg/dL Creatinine 1.22 (0.66-1.25) mg/dL Glucose 128 H (74-99) mg/dL Calcium 8.5 (8.4-10.2) mg/dL Adrenal panel 05/04/22 Range/Units 16:06 Sodium 137 (137-145) mmol/L Potassium 3.7 (3.5-5.1) mmol/L Chloride 110 H (98-107) mmol/L Carbon Dioxide 20 L (22-30) mmol/L BUN 18 (9-20) mg/dL Creatinine 1.22 (0.66-1.25) mg/dL Glucose 128 H (74-99) mg/dL Calcium 8.5 (8.4-10.2) mg/dL Total Bilirubin 0.9 (0.2-1.3) mg/dL AST 15 L (17-59) U/L ALT 26 (4-49) U/L Alkaline Phosphatase 61 (38-126) U/L Total Protein 6.5 (6.3-8.2) g/dL Albumin 3.8 (3.5-5.0) g/dL
[2022-05-05] MEDS: DEXTROSE 5%-0.45% NACL 1,000 ML IV SCH ×2 (13:02→23:32)
[2022-05-05] MEDS: CYANOCOBALAMIN 500 MCG TAB PO SCH (13:11)
[2022-05-05] MEDS: ENOXAPARIN 40 MG/0.4 ML SYRINGE SQ SCH (13:12)
[2022-05-05] MEDS ORDERED: IV FLUID CONTINUATION 1,000 ML IV ONE (13:30)
[2022-05-05] MEDS ORDERED: HEPARIN SODIUM,PORCINE/PF 5,000 UNIT/0.5 ML SYRINGE SQ ONE (14:14)
[2022-05-05] MEDS ORDERED: HEPARIN SODIUM,PORCINE 5,000 UNIT/ML 1 ML VIAL SQ ONE (14:19)
[2022-05-05] MEDS ORDERED: ACETAMINOPHEN TAB 500 MG TAB PO PRN (14:43)
[2022-05-05] MEDS ORDERED: KETOROLAC 15 MG/ML 1 ML VIAL ONE (15:40)
[2022-05-05] MEDS ORDERED: SODIUM CHLORIDE 0.9% 50 ML with ceFAZolin 2,000 MG IV ONE ×2 (15:40)
[2022-05-05] MEDS ORDERED: SUCCINYLCHOLINE CHLORIDE 100 MG/5 ML SYR IV ONE (15:40)
[2022-05-05] MEDS ORDERED: HYDROmorphone (PF) 1 MG/ML ONE (15:40)
[2022-05-05] MEDS ORDERED: LIDOCAINE 2% INJ 20 MG/ML (2 ML VIAL) ONE (15:40)
[2022-05-05] MEDS ORDERED: PROPOFOL 10 MG/ML 20 ML VIAL IV ONE (15:40)
[2022-05-05] MEDS ORDERED: ROCURONIUM 10 MG/ML (5 ML VIAL) IV ONE (15:40)
[2022-05-05] MEDS ORDERED: fentaNYL (PF) 50 MCG/ML 2 ML AMP ONE (15:40)
[2022-05-05] MEDS ORDERED: MIDAZOLAM 2 MG/2 ML VIAL ONE (15:40)
[2022-05-05] MEDS ORDERED: BUPIVACAIN-EPI 0.25%-1:200,000 30 ML VIAL SQ ONE ×2 (16:05)
[2022-05-05] MEDS ORDERED: ACETAMINOPHEN TAB 325 MG TAB PO PRN (17:14)
[2022-05-05] MEDS ORDERED: HYDROmorphone 0.5 MG/0.5 ML SYRINGE IVP PRN (17:14)
[2022-05-05] MEDS ORDERED: HYDROmorphone 0.5 MG/0.5 ML SYRINGE IVP ONE ×3 (17:18→17:43)
--- NOTE | 2022-05-05 17:22 | P.OP ---
Date of Procedure: 05/05/22 Procedure(s) Performed: PREOPERATIVE DIAGNOSIS: Acute cholecystitis POSTOPERATIVE DIAGNOSIS: Same PROCEDURE: Laparoscopic cholecystectomy SURGEON: Ana EBL: 10 mL ANESTHESIA: Gen. COMPLICATIONS: None OPERATIVE PROCEDURE: The patient was brought and placed on the operating room table in the supine position. The patient was placed under general anesthesia at that time. The abdomen was prepped and draped in the usual sterile fashion. A small curvilinear supraumbilical incision was made. The fascia was grasped with the Fabian forceps. The fascia was retracted anteriorly. The Veress needle was advanced but I never was able to palpate passage into the peritoneal cavity. We aborted that location. An optical 5 mm trocar was then advanced into the right upper quadrant. The patient's abdominal wall was extremely mobile given his significant weight loss. In that location I was deep to the muscle but was never confident that we achieved crossing of the peritoneum. Given the patient's surgery in the right upper quadrant with the anastomosis in that location I aborted that location as well. Instead a 5 mm optical trocar was advanced into the left upper quadrant without difficulty and pneumoperitoneum was achieved without difficulty. I inspected both previous attempted sites and no penetration of the peritoneum was identified. An additional 5 mm trocar was placed at the umbilical incision site and 2 5 mm trochars in the right upper quadrant under direct visualization. A 12 mm trocar was advanced into the epigastric location under direct visualization. The gallbladder had minimal adhesions from the previous surgery. The gallbladder was significantly distended and somewhat tense. The wall of the gallbladder did not appear to be particularly thickened and there was no ischemic changes seen. The gallbladder was retracted superiorly and laterally. The peritoneum overlying the infundibulum was bluntly dissected. The patient's cystic duct was visualized. The junction between the cystic duct common and hepatic duct was identified. The critical view of safety was achieved after blunt dissection. The cystic duct was then divided after placement of 3 12 mm clips on the patient's side and one on the specimen side. The cystic artery was identified and clipped as well. The patient had multiple small vessels entering the posterior wall the gallbladder as we traversed the gallbladder fossa which were clipped individually. The gallbladder was then removed from the liver bed using electrocautery. The gallbladder was then removed from the epigastric trocar site with an Endo Catch bag. The gallbladder fossa was irrigated with saline. There was no evidence of any bleeding or biliary drainage seen. The fascia at the 12 millimeter site was closed using a [place]-K[place] 0 Vicryl stitch. The trochars were then removed. The skin at all 5 sites was closed using a 4-0 Monocryl stitch. Skin glue was utilized on the incision sites. At the end of this procedure the sponge and needle counts were correct. DISPOSITION: Stable to the recovery room
[2022-05-05] MEDS ORDERED: ONDANSETRON 4 MG/2 ML VIAL IVP ONE (17:32)
[2022-05-05] MEDS ORDERED: LACTATED RINGERS 1,000 ML IV ONE (17:57)
[2022-05-05 19:34] LABS: Ionized Calcium 5.2 mg/dL (4.5-5.3)
[2022-05-05] MEDS: NICOTINE 21MG/24HR PATCH TRANSDERM SCH (19:39)
[2022-05-05] MEDS: PANTOPRAZOLE 40 MG TABLET PO SCH (19:46)
[2022-05-05 19:47] LABS: Magnesium 1.5 mg/dL (1.6-2.3)
--- NOTE | 2022-05-05 20:04 | XR ---
EXAMINATION TYPE: XR chest 1V portable DATE OF EXAM: 05/05/2022 7:08 PM COMPARISON: CT abdomen and pelvis 05/04/2022 TECHNIQUE: XR chest 1V portable Frontal view of the chest. CLINICAL INDICATION:Male, 62 years old with history of Smoker; cholecystectomy 05/05/2022. FINDINGS: Lungs/Pleura: There is no evidence of pleural effusion, focal consolidation, or pneumothorax. Pulmonary vascularity: Unremarkable. Heart/mediastinum: Cardiomediastinal silhouette is unremarkable. Musculoskeletal: No acute osseous pathology. Other findings: Lucency seen on the right diaphragm consistent with pneumoperitoneum. IMPRESSION: Findings consistent with recent abdominal surgery/cholecystectomy. No Acute intrathoracic process.
[2022-05-05] MEDS: MAGNESIUM OXIDE 400 MG TAB PO SCH (21:16)
[2022-05-05] MEDS: PIPERACILLIN-TAZOBACTAM 3.375 GM in SODIUM CHLORIDE 0.9% 100 ML IVPB SCH (23:25)
[2022-05-06] MEDS: HYDROcodone/APAP 5-325MG 1 EACH TAB PO PRN ×4 (04:12→16:52)
[2022-05-06 08:01] VITALS: RESP 18
[2022-05-06] MEDS: CYANOCOBALAMIN 500 MCG TAB PO SCH (08:33)
[2022-05-06] MEDS: PANTOPRAZOLE 40 MG TABLET PO SCH (08:33)
[2022-05-06] MEDS: MAGNESIUM OXIDE 400 MG TAB PO SCH (08:33)
[2022-05-06] MEDS: ENOXAPARIN 40 MG/0.4 ML SYRINGE SQ SCH (08:34)
[2022-05-06] MEDS: PIPERACILLIN-TAZOBACTAM 3.375 GM in SODIUM CHLORIDE 0.9% 100 ML IVPB SCH ×2 (08:34→16:44)
[2022-05-06] MEDS: NICOTINE 21MG/24HR PATCH TRANSDERM SCH (08:35)
[2022-05-06 10:43] LABS: Basophils # (A) 0.01 X 10*3/uL (0.00-0.10); Basophils % (A) 0.2 %; Eosinophils # (A) 0.17 X 10*3/uL (0.04-0.35); Eosinophils % (A) 3.2 %; HCT 35.2 % (39.6-50.0); Immature Grans, Automated 0.4 %; Lymphocytes # (A) 0.76 X 10*3/uL (0.90-5.00); Lymphocytes % (A) 14.2 %; MCH 31.6 pg (27.0-32.0); MCHC 34.1 g/dL (32.0-37.0); MCV 92.6 fL (80.0-97.0); Mean Platelet Volume 10.8 fL (9.5-12.2); Monocytes # (A) 0.65 X 10*3/uL (0.20-1.00); Monocytes % (A) 12.1 %; NRBC Per 100 WBC 0 /100 WBCS (0.0-0.0); Neutrophils # (A) 3.75 X 10*3/uL (1.80-7.70); Neutrophils % (A) 69.9 %; Platelet Count 189 X 10*3/uL (140-440); RDW 12.6 % (11.5-14.5); WBC 5.36 X 10*3/uL (4.50-10.00)
[2022-05-06 10:54] LABS: African American GFR (CKD) 94.4 (60.0-200.0); Albumin 3.2 g/dL (3.8-4.9); Albumin/Globulin Ratio 1.6 (1.60-3.17); Anion Gap 10.6 mmol/L (10.00-18.00); BUN/Creat Ratio 10.6 Ratio (12.00-20.00); Blood Urea Nitrogen 10.6 mg/dL (9.0-27.0); Calcium 8.3 mg/dL (8.7-10.3); Carbon Dioxide 21.4 mmol/L (20.0-27.5); Non-African American GFR(CKD) 81.4 (60.0-200.0); Potassium 3.2 mmol/L (3.5-5.5); Total Bilirubin 0.7 mg/dL (0.30-1.20); Total Protein 5.2 g/dL (6.2-8.2)
[2022-05-06] MEDS ORDERED: POTASSIUM CHLORIDE ER 20 MEQ TAB.ER PO STA (12:45)
--- NOTE | 2022-05-06 12:48 | P.PN ---
Subjective Progress Note Date: 05/06/22 CHIEF COMPLAINT: Acute cholecystitis HISTORY OF PRESENT ILLNESS: Patient is postop day #1 status post laparoscopic cholecystectomy. Patient reports abdominal pain this morning. He states that he did not receive pain medication throughout the night. He didn't note to request for it. Patient received pain medicines morning. He reports that he started to feel better. He denies any nausea or vomiting. He is having flatus. He tolerated clear liquids. Afebrile. WBC is 5.36 Hgb is 12 platelets 189 sodium 140 potassium 3.2 creatinine 1.0 PHYSICAL EXAM: VITAL SIGNS: Reviewed. GENERAL: Well-developed in no acute distress. HEENT: No sclera icterus. Extraocular movements grossly intact. Moist buccal mucosa. Head is atraumatic, normocephalic. ABDOMEN: Soft. Nondistended. Nontender. NEUROLOGIC: Alert and oriented. Cranial nerves II through XII grossly intact. ASSESSMENT: 1. Acute cholecystitis status post laparoscopic cholecystectomy 2. History of gastric bypass surgery PLAN: -Patient can be discharged surgical standpoint -We'll proceed with upper GI small bowel series in the outpatient setting. Unable to have tests completed during patient's hospitalization. He did receive clear liquids and interventional radiology prefers patient to be nothing by mouth prior to test and they are unable to complete the entire test before the department causes for the day. -Patient to follow up with Dr. Perez outpatient Physician Hatchery Helper note has been reviewed by physician. Signing provider agrees with the documented findings, assessment, and plan of care. I have personally seen and examined the patient, reviewed the TRUCK DRIVER INSTRUCTOR /PAs history, exam and MDM and agree with the assessment and plan as written. Based on total visit time, I have performed more than 50% of the visit. As above: Patient doing better today. The pain he was having seems improved. He is tolerating his liquid diet so far. Upper GI small bowel series apparently could not be performed today. Plan discharge with outpatient follow-up. Objective - Vital Signs Vital signs: Vital Signs Temp 98.2 F 05/06/22 07:00 Pulse 56 L 05/06/22 07:00 Resp 18 05/06/22 07:00 BP 142/75 05/06/22 07:00 Pulse Ox 98 05/06/22 07:00 FiO2 Intake & Output 05/05/22 05/06/22 05/06/22 18:59 06:59 18:59 Intake Total 900 240 Output Total 10 Balance 890 240 Intake: IV 900 Oral 240 Output: Estimated Blood Loss 10 Other: # Voids 1 - Labs CBC & Chem 7: 05/06/22 07:19 05/06/22 07:19 Labs: Abnormal Lab Results - Last 24 Hours (Table) 05/05/22 05/05/22 05/06/22 Range/Units 19:05 19:05 07:19 RBC 3.80 L (4.40-5.60) X 10*6/uL Hgb 12.0 L (13.0-17.0) g/dL Hct 35.2 L (39.6-50.0) % Lymphocytes # 0.76 L (0.90-5.00) X 10*3/uL Potassium (3.5-5.5) mmol/L BUN/Creatinine Ratio (12.00-20.00) Ratio Calcium (8.7-10.3) mg/dL Magnesium 1.5 L (1.6-2.3) mg/dL Total Protein (6.2-8.2) g/dL Albumin (3.8-4.9) g/dL Folate 3.30 L (4.40-31.00) ng/mL 05/06/22 Range/Units 07:19 RBC (4.40-5.60) X 10*6/uL Hgb (13.0-17.0) g/dL Hct (39.6-50.0) % Lymphocytes # (0.90-5.00) X 10*3/uL Potassium 3.2 L (3.5-5.5) mmol/L BUN/Creatinine Ratio 10.60 L (12.00-20.00) Ratio Calcium 8.3 L (8.7-10.3) mg/dL Magnesium (1.6-2.3) mg/dL Total Protein 5.2 L (6.2-8.2) g/dL Albumin 3.2 L (3.8-4.9) g/dL Folate (4.40-31.00) ng/mL
[2022-05-06] MEDS: DEXTROSE 5%-0.45% NACL 1,000 ML IV SCH (13:09)
[2022-05-06 14:23] VITALS: BP 162/89; PULSE 65; TEMP 98.1
--- NOTE | 2022-05-06 15:15 | P.HPIM ---
History of Present Illness H&P Date: 05/05/22 Chief Complaint: Nausea vomiting This is a pleasant 62-year-old patient who follows with Dr. Santiago. In 2012 patient underwent bariatric surgery that included or duodenal sleeve, gastric 8 ounce pouch, this left at 14 inches of intestine. Patient does take multiple supplements. And a baseline patient is a bowel movement after every meal. Averages about 6-7 bowel movements a day. Patient used to be 429 pounds is down 167 pounds now. Prior to that patient did have diabetes hypertension hyperlipidemia. Patient other very active and does not work. 4 days ago on Garza nday patient started having multiple episodes of cane. Her diarrhea about 8-10 times. Started having retching. Also developed fever and chills and some bowel pain. Decreased urine output. Finding decided to come in. Ultrasound showing a dilated gallbladder. Suspected have cholecystitis. Patient also states that for quite some time patient been having increasing heartburn. She is bloating. Often times has to pull off the road. As he has these GI symptoms. Patient has not been into see any GI. On has any endoscopy. 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 Did drink excessive alcohol in the past. Marijuana. Family history: Reviewed, noncontributory to presentation Physical examination: VITAL SIGNS: 97.4, 60, 18, 121/71, 98% room air GENERAL: BMI 25.1, recliner but awake not in distress. EYES: Pupils equal. Conjunctiva normal. HEENT: External appearance of nose and ears normal, oral cavity grossly normal. NECK: JVD not raised; masses not palpable. HEART: First and second heart sounds are normal; no edema. LUNGS: Respiratory rate normal; clear to auscultation. ABDOMEN: Soft, mild Right upper quadrant tenderness, no guarding rigidity, liver spleen not palpable, no masses palpable. PSYCH: Alert and oriented x3; mood and affect normal. MUSCULOSKELETAL:No Clubbing/cyanosis;muscles-grossly intact NEUROLOGICAL: Cranial nerves grossly intact; no facial asymmetry, power and sensation grossly intact. LYMPHATICS: No lymph nodes palpable in the axilla and neck INVESTIGATIONS, reviewed in the clinical context: White count 4 hemoglobin 14.4 platelets 207 sodium 137 potassium 3.7 creatinine 1.2 to COVID 19/influenza type A and type B: Not detected CT abdomen pelvis with contrast: Dilated gallbladder. No dilated ducts. Bilateral nonobstructing renal calculi. Ultrasound abdomen: Nonobstructing right renal stone. Prominent gallbladder with gallstones. EKG tracing personally reviewed by me-normal sinus rhythm. Rate 47 Assessment and plan: -Acute cholecystitis with possible chronic component with gallstones Gen. surgery consulted. 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 Also discussed with Dr. Pena. Patient will need EGD. We will check patient's electrolytes including calcium magnesia vitamin D, iron stores, formerly folate, selenium, zinc, thiamine, B6,. Patient is nothing by mouth. IV fluids. IV Zosyn. Past Medical History Past Medical History: No Reported History, GERD/Reflux History of Any Multi-Drug Resistant Organisms: None Reported Past Surgical History: Tonsillectomy Additional Past Surgical History / Comment(s): duodenal sleeve man made, 8oz pouch, 14inches of intestines, experimental bariatric surgery 2013 Past Anesthesia/Blood Transfusion Reactions: No Reported Reaction Past Psychological History: No Psychological Hx Reported Smoking Status: Light tobacco smoker Past Alcohol Use History: Rare Past Drug Use History: Marijuana Medications and Allergies Home Medications Medication Instructions Recorded Confirmed Type Calcium Carbonate [Calcium] 1,200 mg PO DAILY 12/03/16 05/04/22 History Cholecalciferol (Vitamin D3) 10,000 unit PO DAILY 12/03/16 05/04/22 History [Vitamin D3] Ferrous Sulfate [Iron (65 MG 325 mg PO DAILY 12/03/16 05/04/22 History Elemental)] L.acidoph,Paracasei, B.lactis 1 cap PO DAILY 12/03/16 05/04/22 History [Probiotic] Potassium 99 mg PO DAILY 12/03/16 05/04/22 History Vitamin A (10,000 Wg=0097 Mcg) 10,000 unit PO DAILY 12/03/16 05/04/22 History Vitamin E (Dl,Tocopheryl Acet) 1,000 unit PO DAILY 12/03/16 05/04/22 History [Vitamin E] Zinc 50 mg PO DAILY 12/03/16 05/04/22 History Ascorbic Acid [Vitamin C] 1,000 mg PO DAILY 05/04/22 05/04/22 History Copper Supplement 1 tab PO DAILY 05/04/22 05/04/22 History Cyanocobalamin (Vitamin B-12) 1,000 mcg PO DAILY 05/04/22 05/04/22 History [Vitamin B-12] Famotidine [Pepcid] 40 mg PO DAILY 05/04/22 05/04/22 History Acetaminophen Tab [Tylenol] 650 mg PO Q6HR PRN tab 05/06/22 Rx HYDROcodone/APAP 5-325MG [Mccarley 1 tab PO Q6HR PRN 3 Days #12 tab 05/06/22 Rx 5-325] Nicotine 21Mg/24Hr Patch [Habitrol] 1 patch TRANSDERM DAILY #14 patch 05/06/22 Rx Omeprazole 40 mg PO DAILY #1 05/06/22 05/04/22 Rx Allergies Allergy/AdvReac Type Severity Reaction Status Date / Time No Known Allergies Allergy Verified 05/04/22 21:37 Physical Exam Vitals: Vital Signs Temp Pulse Pulse Resp BP BP Pulse Ox 05/05/22 07:00 98.3 F 66 18 106/66 99 05/05/22 02:50 98.6 F 56 L 15 118/72 99 05/04/22 23:55 98.2 F 57 L 17 119/70 99 05/04/22 22:25 59 L 18 115/71 98 05/04/22 17:26 97.4 F L 60 18 121/71 98 05/04/22 14:47 98.2 F 75 18 125/89 99 Intake and Output 05/04/22 05/05/22 05/05/22 22:59 06:59 14:59 Other: # Voids 2 Weight 74.843 kg Results CBC & Chem 7: 05/06/22 07:19 05/06/22 07:19 Labs: Abnormal Lab Results - Last 24 Hours (Table) 05/04/22 05/04/22 05/04/22 Range/Units 16:06 16:06 18:20 Lymphocytes # (Manual) 0.68 L (1.0-4.8) k/uL Chloride 110 H (98-107) mmol/L Carbon Dioxide 20 L (22-30) mmol/L Glucose 128 H (74-99) mg/dL AST 15 L (17-59) U/L Ur Specific [place] >1.050 H (1.001-1.035) Urine Protein 1+ H (Negative) Hyaline Casts 25 H (0-2) /lpf Urine Mucus Moderate H (None) /hpf Thrombosis Risk Factor Assmnt - Choose All That Apply Any of the Below Risk Factors Present?: Yes Each Factor Represents 1 point: Age 41-60 years Other Risk Factors: No Other congenital or acquired thrombophilia - If yes, enter type in comment: No Thrombosis Risk Factor Assessment Total Risk Factor Score: 1 Thrombosis Risk Factor Assessment Level: Low Risk
[2022-05-06 15:23] LABS: % Iron Saturation 30.67 (15.00-50.00)
--- NOTE | 2022-05-06 16:03 | P.DS ---
Providers Date of admission: 05/04/22 22:27 Expected date of discharge: 05/06/22 Attending physician: Edgardo Mendoza Consults: 05/04/22 21:18 Consult Physician Routine Consulting Provider: Carlos Alberto Perez Consult Reason/Comments: cholecystitis and patient request Do you want consulting provider notified?: Already Contacted Primary care physician: Bob Pamela [facility] Course: Chief Complaint: Nausea vomiting This is a pleasant 62-year-old patient who follows with Dr. Santiago. In 2012 patient underwent bariatric surgery that included or duodenal sleeve, gastric 8 ounce pouch, this left at 14 inches of intestine. Patient does take multiple supplements. And a baseline patient is a bowel movement after every meal. Averages about 6-7 bowel movements a day. Patient used to be 429 pounds is down 167 pounds now. Prior to that patient did have diabetes hypertension hyperlipidemia. Patient other very active and does not work. 4 days ago on Monday patient started having multiple episodes of cane. Her diarrhea about 8- 10 times. Started having retching. Also developed fever and chills and some bowel pain. Decreased urine output. Finding decided to come in. Ultrasound showing a dilated gallbladder. Suspected have cholecystitis. Patient also states that for quite some time patient been having increasing heartburn. She is bloating. Often times has to pull off the road. As he has these GI symptoms. Patient has not been into see any GI. On has any endoscopy. May 06: Patient underwent cholecystectomy yesterday. This morning was tolerated clear liquids. Upper GI barium was ordered. Now this will be done as outpatient as patient has to be nothing by mouth for the same. Okay to be discharged per Dr. Pena. No antibiotics. Discussed with patient. Questions answered. Patient feels much better. Labs pending today include selenium, , vitamin B6, thiamine, zinc Discussion and discharge planning more than 35 minutes Past medical history to include: Diabetes, hypertension, hyperlipidemia, morbid obesity Social history: . [employer]. Smokes 1 cigar a day. Did drink excessive alcohol in the past. Marijuana. Family history: Reviewed, noncontributory to presentation Physical examination: VITAL SIGNS: 98.1, 65, 18, 140/75, 98% room air GENERAL: Laying in bed, comfortable EYES: Pupils equal. Conjunctiva normal. HEENT: External appearance of nose and ears normal, oral cavity grossly normal. NECK: JVD not raised; masses not palpable. HEART: First and second heart sounds are normal; no edema. LUNGS: Respiratory rate normal; clear to auscultation. ABDOMEN: Soft, mild tenderness, no guarding rigidity, liver spleen not palpable, no masses palpable. PSYCH: Alert and oriented x3; mood and affect normal. MUSCULOSKELETAL:No Clubbing/cyanosis;muscles-grossly intact INVESTIGATIONS, reviewed in the clinical context: May 06: White count 5.3 hemoglobin 12 platelets 189 ionized calcium 5.2 magnesia 1.5 folate 3.3 vitamin D 18.5 vitamin B12 656 White count 4 hemoglobin 14.4 platelets 207 sodium 137 potassium 3.7 creatinine 1.2 to COVID 19/influenza type A and type B: Not detected CT abdomen pelvis with contrast: Dilated gallbladder. No dilated ducts. Bilateral nonobstructing renal calculi. Ultrasound abdomen: Nonobstructing right renal stone. Prominent gallbladder with gallstones. EKG tracing personally reviewed by me-normal sinus rhythm. Rate 47 Assessment and plan: -Acute cholecystitis with possible chronic component with gallstones Cholecystectomy by Dr. 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 Follow electrolytes Disposition: Home Patient Condition at Discharge: Stable Plan - Discharge Summary Discharge Rx Participant: No New Discharge Prescriptions: New Nicotine 21Mg/24Hr Patch [Habitrol] 1 patch TRANSDERM DAILY #14 patch HYDROcodone/APAP 5-325MG [[place] 5-325] 1 tab PO Q6HR PRN 3 Days #12 tab PRN Reason: Pain Acetaminophen Tab [Tylenol] 650 mg PO Q6HR PRN tab PRN Reason: Mild Pain Or Fever >= 100.5 Continue Vitamin E (Dl,Tocopheryl Acet) [Vitamin E] 1,000 unit PO DAILY L.acidoph,Paracasei, B.lactis [Probiotic] 1 cap PO DAILY Zinc 50 mg PO DAILY Vitamin A (10,000 Pt=3080 Mcg) 10,000 unit PO DAILY Potassium 99 mg PO DAILY Ferrous Sulfate [Iron (65 MG Elemental)] 325 mg PO DAILY Cholecalciferol (Vitamin D3) [Vitamin D3] 10,000 unit PO DAILY Calcium Carbonate [Calcium] 1,200 mg PO DAILY Cyanocobalamin (Vitamin B-12) [Vitamin B-12] 1,000 mcg PO DAILY Copper Supplement 1 tab PO DAILY Famotidine [Pepcid] 40 mg PO DAILY Ascorbic Acid [Vitamin C] 1,000 mg PO DAILY Omeprazole 40 mg PO DAILY #1 Discharge Medication List Calcium Carbonate [Calcium] 1,200 mg PO DAILY 12/03/16 [History] Cholecalciferol (Vitamin D3) [Vitamin D3] 10,000 unit PO DAILY 12/03/16 [History] Ferrous Sulfate [Iron (65 MG Elemental)] 325 mg PO DAILY 12/03/16 [History] L.acidoph,Paracasei, B.lactis [Probiotic] 1 cap PO DAILY 12/03/16 [History] Potassium 99 mg PO DAILY 12/03/16 [History] Vitamin A (10,000 Zy=1012 Mcg) 10,000 unit PO DAILY 12/03/16 [History] Vitamin E (Dl,Tocopheryl Acet) [Vitamin E] 1,000 unit PO DAILY 12/03/16 [History] Zinc 50 mg PO DAILY 12/03/16 [History] Ascorbic Acid [Vitamin C] 1,000 mg PO DAILY 05/04/22 [History] Copper Supplement 1 tab PO DAILY 05/04/22 [History] Cyanocobalamin (Vitamin B-12) [Vitamin B-12] 1,000 mcg PO DAILY 05/04/22 [History] Famotidine [Pepcid] 40 mg PO DAILY 05/04/22 [History] Acetaminophen Tab [Tylenol] 650 mg PO Q6HR PRN tab 05/06/22 [Rx] HYDROcodone/APAP 5-325MG [[place] 5-325] 1 tab PO Q6HR PRN 3 Days #12 tab 05/06/22 [Rx] Nicotine 21Mg/24Hr Patch [Habitrol] 1 patch TRANSDERM DAILY #14 patch 05/06/22 [Rx] Omeprazole 40 mg PO DAILY #1 05/06/22 [Rx] Follow up Appointment(s)/Referral(s): Carlos Alberto Perez MD [Medical Doctor] - 1 Week Bob Santiago MD [Primary Care Provider] - 1-2 days Patient Instructions/Handouts: *Surgery [facility] - Laparoscopic Cholecystectomy Discharge Instructions Activity/Diet/Wound Care/Special Instructions: No driving while taking [place] No lifting over 10 pounds You may shower. No soaking or tub baths for 2 weeks Very light activity until you are reevaluated at your follow up appointment with your surgeon
== END 2022-05-06 16:55 | disposition home or self-care (01) ==
LOC: EC 12:57 → 6NMEDSUR 22:27 → UNDODISOB 05-06 14:55
PROVIDERS: ADMIT Hospitalist; ATTEND Hospitalist
DX: K80.10 Calculus of gallbladder with chronic cholecystitis without obstruction (principal); E11.9 Type 2 diabetes mellitus without complications; N20.0 Calculus of kidney; E83.42 Hypomagnesemia; E87.6 Hypokalemia; E86.0 Dehydration; I10 Essential (primary) hypertension; E78.5 Hyperlipidemia, unspecified; E66.01 Morbid (severe) obesity due to excess calories; Z68.25 Body mass index [BMI] 25.0-25.9, adult; K90.9 Intestinal malabsorption, unspecified; F17.290 Nicotine dependence, other tobacco product, uncomplicated; K21.9 Gastro-esophageal reflux disease without esophagitis; Z98.84 Bariatric surgery status; Z79.899 Other long term (current) drug therapy
CPT/HCPCS: 96376; 96374; 99285; 36415; 84207; 84255; 88304; 84425; 80053 ×2; 82330; 82607; 82728; 82150; 82746; 83540; 83550; 83690; 83735; 84630; 85025 ×2; 81001; 82306; 87502; 87635; 71045; 76705; 74177; 47562; G0378 ×3; J2543 ×2; J2250; J1644; J2405; J0690; J1650; J3010; J1170 ×2; J1885; J0330; J2704; C9113 ×2; Q9967; J2001

== ENCOUNTER 2022-09-07 15:53 | Emergency (ER) | payer OTHER ==
[2022-09-07 16:29] VITALS: BP 150/74; PULSE 68; RESP 18; TEMP 98.4
[2022-09-07] MEDS ORDERED: LIDOCAINE 1% (PF) 10 MG/ML (30 ML SDV) SQ STA (18:22)
--- NOTE | 2022-09-07 19:57 | ED ---
General Adult HPI - General Chief complaint: Abdominal Pain Stated complaint: ABD Pain Time Seen by Provider: 09/07/22 18:07 Source: patient Mode of arrival: ambulatory Limitations: no limitations - History of Present Illness Initial comments: 's patient is a 62-year-old man with history of previous gastric bypass surgery, who presents with complaint that he is having something protruding from his anus. The patient states that it had come on overnight. He states that he usually has about 10 very runny or liquidy bowel movements per day. He noticed after 1 that was pain and of a bump at his anus. He states now that he is barely able to sit any pressure at the area causes intense severe pain. Pain is better if he lies on his side so there is no pressure on his anus. No systemic symptoms, no fever or chills no abdominal pain. No change in bowel movements or urination. Onset/Timin -: days(s) Location: buttocks Radiation: non-radiation Quality: aching, sharp Consistency: constant Improves with: none Worsens with: other Associated Symptoms: denies other symptoms (Position) - Related Data Home Medications Medication Instructions Recorded Confirmed Calcium Carbonate [Calcium] 1,200 mg PO DAILY 12/03/16 05/04/22 Cholecalciferol (Vitamin D3) 10,000 unit PO DAILY 12/03/16 05/04/22 [Vitamin D3] Ferrous Sulfate [Iron (65 MG 325 mg PO DAILY 12/03/16 05/04/22 Elemental)] L.acidoph,Paracasei, B.lactis 1 cap PO DAILY 12/03/16 05/04/22 [Probiotic] Potassium 99 mg PO DAILY 12/03/16 05/04/22 Vitamin A (10,000 Qm=0642 Mcg) 10,000 unit PO DAILY 12/03/16 05/04/22 Vitamin E (Dl,Tocopheryl Acet) 1,000 unit PO DAILY 12/03/16 05/04/22 [Vitamin E] Zinc 50 mg PO DAILY 12/03/16 05/04/22 Ascorbic Acid [Vitamin C] 1,000 mg PO DAILY 05/04/22 05/04/22 Copper Supplement 1 tab PO DAILY 05/04/22 05/04/22 Cyanocobalamin (Vitamin B-12) 1,000 mcg PO DAILY 05/04/22 05/04/22 [Vitamin B-12] Famotidine [Pepcid] 40 mg PO DAILY 05/04/22 05/04/22 Previous Rx's Medication Instructions Recorded Acetaminophen Tab [Tylenol] 650 mg PO Q6HR PRN tab 05/06/22 Folic Acid 0.8 mg PO DAILY #30 capsule 05/06/22 HYDROcodone/APAP 5-325MG [[place] 1 tab PO Q6HR PRN 3 Days #12 tab 05/06/22 5-325] Magnesium Oxide [Mag-Ox] 250 mg PO DAILY #30 tab 05/06/22 Nicotine 21Mg/24Hr Patch [Habitrol] 1 patch TRANSDERM DAILY #14 patch 05/06/22 Omeprazole 40 mg PO DAILY #1 05/06/22 Hydrocortisone [Anusol-Hc] 1 applic RECTAL BID #30 gm 09/07/22 Allergies Allergy/AdvReac Type Severity Reaction Status Date / Time No Known Allergies Allergy Verified 09/07/22 16:29 Review of Systems ROS Statement: Those systems with pertinent positive or pertinent negative responses have been documented in the HPI. ROS Other: All systems not noted in ROS Statement are negative. Constitutional: Denies: fever, chills Respiratory: Denies: dyspnea Cardiovascular: Denies: chest pain, palpitations Gastrointestinal: Reports: as per HPI, diarrhea. Denies: abdominal pain, nausea, vomiting, constipation, hematemesis, melena, hematochezia Genitourinary: Denies: dysuria, frequency, testicular pain, testicular mass Skin: Denies: rash Neurological: Denies: headache Past Medical History Past Medical History: No Reported History, GERD/Reflux History of Any Multi-Drug Resistant Organisms: None Reported Past Surgical History: Tonsillectomy Additional Past Surgical History / Comment(s): duodenal sleeve man made, 8oz pouch, 14inches of intestines, experimental bariatric surgery 2013 Past Anesthesia/Blood Transfusion Reactions: No Reported Reaction Past Psychological History: No Psychological Hx Reported Smoking Status: Light tobacco smoker Past Alcohol Use History: Rare Past Drug Use History: Marijuana General Exam Limitations: no limitations General appearance: alert, in no apparent distress Head exam: Present: atraumatic, normocephalic Respiratory exam: Present: normal lung sounds bilaterally. Absent: respiratory distress, wheezes, rales, rhonchi, stridor, accessory muscle use Cardiovascular Exam: Present: regular rate, normal rhythm, normal heart sounds. Absent: systolic murmur, diastolic murmur, rubs, gallop GI/Abdominal exam: Present: soft, normal bowel sounds. Absent: distended, tenderness, guarding, rebound, rigid, organomegaly, mass, pulsatile mass Rectal exam: Present: hemorrhoids, tenderness, other (Patient has approximately 2.5-3 cm hemorrhoid which does appear to have thrombosis and is markedly tender. No evidence of infection.) Extremities exam: Present: normal inspection, normal capillary refill. Absent: pedal edema, calf tenderness Neurological exam: Present: alert Skin exam: Present: warm, dry, intact, normal color. Absent: rash Course Vital Signs 09/07/22 16:26 Temperature 98.4 F Pulse Rate 68 Respiratory 18 Rate Blood Pressure 150/74 O2 Sat by Pulse 98 Oximetry Procedures - Incision & Drainage Consent Obtained: verbal consent Site: buttock Anesthetic Used: lidocaine 1% I&D Cleaning Method: Chloroprep Scalpel Used: #11 Needle Aspiration Performed?: No Irrigation Performed?: No I&D Drainage Obtained: Other (Clot) Patient Tolerated Procedure: well, no complications Medical Decision Making - Medical Decision Making This patient is a 62-year-old man with thrombosed external hemorrhoid. I was able to incise the hemorrhoid using an #11 scalpel, see the note, and then express approximately 3 mL of clot. The patient did have significant relief and tolerated procedure well. Discussed appropriate further care and follow-up as well as return parameters. Disposition Clinical Impression: Thrombosed external hemorrhoid Disposition: HOME SELF-CARE Condition: Good Instructions (If sedation given, give patient instructions): Thrombosed Hemorrhoid (ED) Prescriptions: Hydrocortisone [Anusol-Hc] 1 applic RECTAL BID #30 gm Is patient prescribed a controlled substance at d/c from ED?: No Referrals: Bob Santiago MD [Primary Care Provider] - 1-2 days
== END 2022-09-07 20:34 | disposition home or self-care (01) ==
LOC: EC 15:53
DX: K64.5 Perianal venous thrombosis (principal); K21.9 Gastro-esophageal reflux disease without esophagitis; F12.90 Cannabis use, unspecified, uncomplicated
CPT/HCPCS: 99283; J2001

== ENCOUNTER 2025-03-30 14:32 | Emergency (ER) | payer OTHER ==
[2025-03-30 14:37] VITALS: BP 182/102; PULSE 69; RESP 16; TEMP 98.2
--- NOTE | 2025-03-30 15:05 | ED ---
Abdominal Pain HPI - General Chief Complaint: Abdominal Pain Stated Complaint: Possible kidney stone Time Seen by Provider: 03/30/25 14:50 Source: patient, family, RN notes reviewed Mode of arrival: wheelchair Limitations: no limitations - History of Present Illness Initial Comments: This is a 65-year-old male with history of nephrolithiasis presenting for right flank pain (08/22) since 0200 this morning. Patient states pain has been sudden onset and constant with associated N/V/D. Patient states that this feels like past occurrences of kidney stone obstruction. Endorses use of 's oxycodone with transient relief. Denies fever, chills, dysuria, hematuria. Onset/Timin -: hour(s) Time: 02:00 Location: R flank Migration to: no migration Severity scale (1-10): 10 Consistency: constant Associated Symptoms: nausea, vomiting, diarrhea Treatments Prior to Arrival: prescription analgesics - Related Data Home Medications Medication Instructions Recorded Confirmed Calcium Carbonate [Calcium] 1,200 mg PO DAILY 12/03/16 05/04/22 Cholecalciferol (Vitamin D3) 10,000 unit PO DAILY 12/03/16 05/04/22 [Vitamin D3] Ferrous Sulfate [Iron (65 MG 325 mg PO DAILY 12/03/16 05/04/22 Elemental)] L.acidoph,Paracasei, B.lactis 1 cap PO DAILY 12/03/16 05/04/22 [Probiotic] Potassium 99 mg PO DAILY 12/03/16 05/04/22 Vitamin A (10,000 Cf=9071 Mcg) 10,000 unit PO DAILY 12/03/16 05/04/22 Vitamin E (Dl,Tocopheryl Acet) 1,000 unit PO DAILY 12/03/16 05/04/22 [Vitamin E] Zinc 50 mg PO DAILY 12/03/16 05/04/22 Ascorbic Acid [Vitamin C] 1,000 mg PO DAILY 05/04/22 05/04/22 Copper Supplement 1 tab PO DAILY 05/04/22 05/04/22 Cyanocobalamin (Vitamin B-12) 1,000 mcg PO DAILY 05/04/22 05/04/22 [Vitamin B-12] Famotidine [Pepcid] 40 mg PO DAILY 05/04/22 05/04/22 Previous Rx's Medication Instructions Recorded Acetaminophen Tab [Tylenol] 650 mg PO Q6HR PRN tab 05/06/22 Folic Acid 0.8 mg PO DAILY #30 capsule 05/06/22 HYDROcodone/APAP 5-325MG [[place] 1 tab PO Q6HR PRN 3 Days #12 tab 05/06/22 5-325] Magnesium Oxide [Mag-Ox] 250 mg PO DAILY #30 tab 05/06/22 Nicotine 21Mg/24Hr Patch [Habitrol] 1 patch TRANSDERM DAILY #14 patch 05/06/22 Omeprazole 40 mg PO DAILY #1 05/06/22 Hydrocortisone [Anusol-Hc] 1 applic RECTAL BID #30 gm 09/07/22 HYDROcodone/APAP 5-325MG [[place] 5] 1 each PO Q6HR PRN #12 tab 03/30/25 Ibuprofen [Motrin] 600 mg PO Q8HR PRN #30 tab 03/30/25 Ondansetron [Zofran] 4 mg PO Q8HR PRN #12 tab 03/30/25 Tamsulosin [Flomax] 0.4 mg PO DAILY #10 cap 03/30/25 Allergies Allergy/AdvReac Type Severity Reaction Status Date / Time No Known Allergies Allergy Verified 03/30/25 14:37 Review of Systems ROS Statement: Those systems with pertinent positive or pertinent negative responses have been documented in the HPI. ROS Other: All systems not noted in ROS Statement are negative. Past Medical History Past Medical History: GERD/Reflux History of Any Multi-Drug Resistant Organisms: None Reported Past Surgical History: Tonsillectomy Additional Past Surgical History / Comment(s): duodenal sleeve man made, 8oz pouch, 14inches of intestines, experimental bariatric surgery 2012 Past Anesthesia/Blood Transfusion Reactions: No Reported Reaction Past Psychological History: No Psychological Hx Reported Smoking Status: Light tobacco smoker Past Alcohol Use History: Rare Past Drug Use History: Marijuana General Exam Limitations: no limitations General appearance: alert, in no apparent distress Head exam: Present: atraumatic, normocephalic, normal inspection Eye exam: Present: normal appearance, PERRL, EOMI. Absent: scleral icterus, conjunctival injection, periorbital swelling ENT exam: Present: normal exam, mucous membranes moist Neck exam: Present: normal inspection. Absent: tenderness, meningismus, lymphadenopathy Respiratory exam: Present: normal lung sounds bilaterally. Absent: respiratory distress, wheezes, rales, rhonchi, stridor Cardiovascular Exam: Present: regular rate, normal rhythm, normal heart sounds. Absent: systolic murmur, diastolic murmur, rubs, gallop, clicks GI/Abdominal exam: Present: soft, normal bowel sounds, other (Negative McBurney point, Rovsing sign, Jauregui sign.). Absent: distended, tenderness (No abdominal tenderness), guarding, rebound, rigid Extremities exam: Present: normal inspection, full ROM, normal capillary refill. Absent: tenderness, pedal edema, joint swelling, calf tenderness Back exam: Present: CVA tenderness (R). Absent: CVA tenderness (L) Neurological exam: Present: alert, oriented X3, CN II-XII intact Psychiatric exam: Present: normal affect, normal mood Skin exam: Present: warm, dry, intact, normal color. Absent: rash Course Vital Signs 03/30/25 14:34 Temperature 98.2 F Pulse Rate 69 Respiratory 16 Rate Blood Pressure 182/102 O2 Sat by Pulse 99 Oximetry Medical Decision Making - Medical Decision Making Was pt. sent in by a medical professional or institution (, PA, LANGUAGE TEACHER, urgent ca re, hospital, or alf...) When possible be specific @ -No Did you speak to anyone other than the patient for history (EMS, parent, family, police, friend...)? What history was obtained from this source @ -No Did you review nursing and triage notes (agree or disagree)? Why? @ -I reviewed and agree with nursing and triage notes Were old charts reviewed (outside hosp., previous admission, EMS record, old EKG, old radiological studies, urgent care reports/EKG's, alf records)? Report findings @ -No old charts were reviewed Differential Diagnosis (chest pain, altered mental status, abdominal pain women, abdominal pain men, vaginal bleeding, weakness, fever, dyspnea, syncope, he adache, dizziness, GI bleed, back pain, seizure, CVA, palpatations, mental health, musculoskeletal)? @ -Differential Back Pain: Strain, zoster, cauda equina syndrome, epidural abscess, vertebral oste omyelitis, discitis, fracture, subluxation, disc herniation, DJD, spinal stenosis, dissection, AAA, pancreatitis, peptic ulcer disease, pyelonephritis, kidney stone, this is not meant to be an all-inclusive list. EKG interpreted by me (3pts min.). @ -Not done X-rays interpreted by me (1pt min.). @ -None done CT interpreted by me (1pt min.). @ -AP CT shows right UVJ 4 mm calculus causing mild hydroureteronephrosis and right perinephric inflammation along with nonobstructing small right renal calculi. U/S interpreted by me (1pt. min.). @ -None done What testing was considered but not performed or refused? (CT, X-rays, U/S, labs)? Why? @ -None What meds were considered but not given or refused? Why? @ -None Did you discuss the management of the patient with other professionals (professionals i.e. DrPolina, PA, LANGUAGE TEACHER, lab, RT, psych nurse, social media executive, photovoltaic panel installer, teacher, financial services officer, adult protective caseworker)? Give summary @ -No Was smoking cessation discussed for >3mins.? @ -No Was critical care preformed (if so, how long)? @ -No Were there social determinants of health that impacted care today? How? (Homelessness, low income, unemployed, alcoholism, drug addiction, transportat ion, low edu. Level, literacy, decrease access to med. care, nursing home, rehab)? @ -No Was there de-escalation of care discussed even if they declined (Discuss DNR or withdrawal of care, Hospice)? DNR status @ -No What co-morbidities impacted this encounter? (DM, HTN, Smoking, COPD, CAD, Cancer, CVA, ARF, Chemo, Hep., AIDS, mental health diagnosis, sleep apnea, morbid obesity)? @ -None Was patient admitted / discharged? Hospital course, mention meds given and route, prescriptions, significant lab abnormalities, going to OR and other pertinent info. @ -Patient initially provided IV normal saline, Toradol, morphine and Zofran. Lab work shows hyperglycemia 151 with normal kidney function, LFT, and lipase and lactic acid. UA positive for hematuria. AP CT shows right UVJ 4 mm calculus causing mild hydroureteronephrosis and right perinephric inflammation along with nonobstructing small right renal calculi. Patient provided p.o. Flomax and discharged with Zofran starter pack. Flomax and Zofran sent to patient's pharmacy. Vies increase oral rehydration and alternate Tylenol/Motrin every 4 hours for pain. Follow-up with PCP/urology for any ongoing or worsening symptoms. Discussed patient with Dr. Agudelo. Undiagnosed new problem with uncertain prognosis? @ -No Drug Therapy requiring intensive monitoring for toxicity (Heparin, Nitro, Insulin, Cardizem)? @ -No Were any procedures done? @ -No Diagnosis/symptom? @ -Ureterolithiasis Acute, or Chronic, or Acute on Chronic? @ -Acute Uncomplicated (without systemic symptoms) or Complicated (systemic symptoms)? @ -Uncomplicated Side effects of treatment? @ -No Exacerbation, Progression, or Severe Exacerbation? @ -No Poses a threat to life or bodily function? How? (Chest pain, USA, MS, pneumonia, PE, COPD, DKA, ARF, appy, cholecystitis, CVA, Diverticulitis, Homicidal, Suicidal, threat to staff... and all critical care pts) @ -No - Lab Data Result diagrams: 03/30/25 16:09 03/30/25 16:09 Lab Results 03/30/25 03/30/25 03/30/25 Range/Units 15:35 16:09 16:09 WBC 8.55 (4.50-10.00) 10*3/uL RBC 4.26 L (4.40-5.60) 10*6/uL Hgb 14.2 (13.0-17.0) g/dL Hct 40.5 (39.6-50.0) % MCV 95.1 (80.0-97.0) fL MCH 33.3 H (27.0-32.0) pg MCHC 35.1 (32.0-37.0) g/dL Plt Count 193 (140-440) 10*3/uL MPV 10.2 (9.5-12.2) fL Immature Gran % (Auto) 0.5 % Neutrophils % 86.7 % Lymphocytes % 4.9 % Monocytes % 7.7 % Eosinophils % 0.0 % Basophils % 0.2 % Immature Gran # 0.04 (0.00-0.04) 10*3/uL Neutrophils # 7.41 (1.80-7.70) 10*3/uL Lymphocytes # 0.42 L (0.90-5.00) 10*3/uL Monocytes # 0.66 (0.20-1.00) 10*3/uL Eosinophils # 0.00 L (0.04-0.35) 10*3/uL Basophils # 0.02 (0.00-0.10) 10*3/uL Sodium 135 L (137-145) mmol/L Potassium 4.4 (3.5-5.1) mmol/L Chloride 102 (98-107) mmol/L Carbon Dioxide 26 (22-30) mmol/L Anion Gap 7 mmol/L BUN 10 (9-20) mg/dL Creatinine 0.90 (0.66-1.25) mg/dL Est GFR (CKD-EPI)AfAm >90 (>60 ml/min/1.73 sqM) Est GFR (CKD-EPI)NonAf >90 (>60 ml/min/1.73 sqM) Glucose 151 H (74-99) mg/dL Plasma Lactic Acid Steve (0.7-2.0) mmol/L Calcium 9.2 (8.4-10.2) mg/dL Total Bilirubin 1.2 (0.2-1.3) mg/dL AST 25 (17-59) U/L ALT 20 (4-49) U/L Alkaline Phosphatase 89 (38-126) U/L Total Protein 6.7 (6.3-8.2) g/dL Albumin 4.1 (3.5-5.0) g/dL Lipase 65 (23-300) U/L Urine Color Colorless Urine Appearance Clear (Clear) Urine pH 6.5 (5.0-8.0) Ur Specific [place] 1.011 (1.001-1.035) Urine Protein Negative (Negative) Urine Glucose (UA) Negative (Negative) Urine Ketones Negative (Negative) Urine Blood Small H (Negative) Urine Nitrite Negative (Negative) Urine Bilirubin Negative (Negative) Urine Urobilinogen <2.0 (<2.0) mg/dL Ur Leukocyte Esterase Negative (Negative) Urine RBC 15 H (0-5) /hpf Urine WBC 3 (0-5) /hpf Urine Mucus Rare H (None) /hpf 03/30/25 Range/Units 16:09 WBC (4.50-10.00) 10*3/uL RBC (4.40-5.60) 10*6/uL Hgb (13.0-17.0) g/dL Hct (39.6-50.0) % MCV (80.0-97.0) fL MCH (27.0-32.0) pg MCHC (32.0-37.0) g/dL Plt Count (140-440) 10*3/uL MPV (9.5-12.2) fL Immature Gran % (Auto) % Neutrophils % % Lymphocytes % % Monocytes % % Eosinophils % % Basophils % % Immature Gran # (0.00-0.04) 10*3/uL Neutrophils # (1.80-7.70) 10*3/uL Lymphocytes # (0.90-5.00) 10*3/uL Monocytes # (0.20-1.00) 10*3/uL Eosinophils # (0.04-0.35) 10*3/uL Basophils # (0.00-0.10) 10*3/uL Sodium (137-145) mmol/L Potassium (3.5-5.1) mmol/L Chloride (98-107) mmol/L Carbon Dioxide (22-30) mmol/L Anion Gap mmol/L BUN (9-20) mg/dL Creatinine (0.66-1.25) mg/dL Est GFR (CKD-EPI)AfAm (>60 ml/min/1.73 sqM) Est GFR (CKD-EPI)NonAf (>60 ml/min/1.73 sqM) Glucose (74-99) mg/dL Plasma Lactic Acid Steve 1.3 (0.7-2.0) mmol/L Calcium (8.4-10.2) mg/dL Total Bilirubin (0.2-1.3) mg/dL AST (17-59) U/L ALT (4-49) U/L Alkaline Phosphatase (38-126) U/L Total Protein (6.3-8.2) g/dL Albumin (3.5-5.0) g/dL Lipase (23-300) U/L Urine Color Urine Appearance (Clear) Urine pH (5.0-8.0) Ur Specific [place] (1.001-1.035) Urine Protein (Negative) Urine Glucose (UA) (Negative) Urine Ketones (Negative) Urine Blood (Negative) Urine Nitrite (Negative) Urine Bilirubin (Negative) Urine Urobilinogen (<2.0) mg/dL Ur Leukocyte Esterase (Negative) Urine RBC (0-5) /hpf Urine WBC (0-5) /hpf Urine Mucus (None) /hpf Disposition Clinical Impression: Ureterolithiasis Disposition: HOME SELF-CARE Condition: Fair Instructions (If sedation given, give patient instructions): Ureteral Stones (ED) Additional Instructions: Increase fluid intake. Alternate Tylenol/Motrin every 4 hours for pain. Follow-up with PCP/urology for any ongoing or worsening symptoms. Prescriptions: Tamsulosin [Flomax] 0.4 mg PO DAILY #10 cap Ibuprofen [Motrin] 600 mg PO Q8HR PRN #30 tab PRN Reason: Pain HYDROcodone/APAP 5-325MG [[place] 5] 1 each PO Q6HR PRN #12 tab PRN Reason: Pain Ondansetron [Zofran] 4 mg PO Q8HR PRN #12 tab PRN Reason: Nausea Is patient prescribed a controlled substance at d/c from ED?: Yes When asked, does pt state using other controlled substances?: Yes If prescribed controlled substance>3 days was MAPS reviewed?: Yes (Maps unable to find any opioids or controlled substances prescribed to patient in the last 2 years.) If opioid is for acute pain is fill amount 7 days or less?: Yes Referrals: Bob Santiago MD [Primary Care Provider] - 1-2 days Yaw Hagan MD [STAFF PHYSICIAN] - 1-2 days Time of Disposition: 17:06
[2025-03-30 15:58] LABS: Appearance,Urine Clear (Clear); Bilirubin,Urine Negative (Negative); Blood,Urine Small (Negative); Color,Urine Colorless; Glucose,Urine (UA) Negative (Negative); Ketones,Urine Negative (Negative); Leukocyte Esterase,Urine Negative (Negative); Mucus,Urine Rare /hpf; Nitrite,Urine Negative (Negative); PH, Urine 6.5 (5.0-8.0); Protein,Urine Negative (Negative); RBC,Urine 15 /hpf (0-5); Specific Gravity,Urine 1.011 (1.001-1.035); Urobilinogen,Urine <2.0 mg/dL (<2.0); WBC,Urine 3 /hpf (0-5)
[2025-03-30] MEDS: ONDANSETRON 4 MG/2 ML VIAL IVP STA (16:09)
[2025-03-30] MEDS: MORPHINE SULFATE 4 MG/ML SYRINGE IVP STA (16:13)
[2025-03-30] MEDS: SODIUM CHLORIDE 0.9% 1,000 ML IV STA (16:14)
[2025-03-30] MEDS: KETOROLAC 15 MG/ML 1 ML VIAL IVP STA (16:14)
[2025-03-30] MEDS: ONDANSETRON 4 MG ODT STARTER PACK 2 TAB BTL PO STA ×2 (16:15→17:30)
[2025-03-30 16:16] LABS: Basophils # (A) 0.02 10*3/uL (0.00-0.10); Basophils % (A) 0.2 %; HCT 40.5 % (39.6-50.0); HGB 14.2 g/dL (13.0-17.0); Lymphocytes # (A) 0.42 10*3/uL (0.90-5.00); Lymphocytes % (A) 4.9 %; MCH 33.3 pg (27.0-32.0); MCHC 35.1 g/dL (32.0-37.0); MCV 95.1 fL (80.0-97.0); Mean Platelet Volume 10.2 fL (9.5-12.2); Monocytes # (A) 0.66 10*3/uL (0.20-1.00); Monocytes % (A) 7.7 %; Neutrophils # (A) 7.41 10*3/uL (1.80-7.70); Neutrophils % (A) 86.7 %; Platelet Count 193 10*3/uL (140-440); RBC 4.26 10*6/uL (4.40-5.60); RDW 12.2 % (11.5-14.5); WBC 8.55 10*3/uL (4.50-10.00)
[2025-03-30 16:30] LABS: ALT 20 U/L (4-49); AST 25 U/L (17-59); African American GFR (CKD) >90 (>60 ml/min/1.73 sqM); Albumin 4.1 g/dL (3.5-5.0); Alkaline Phosphatase 89 U/L (38-126); Anion Gap 7 mmol/L; Blood Urea Nitrogen 10 mg/dL (9-20); Calcium 9.2 mg/dL (8.4-10.2); Carbon Dioxide 26 mmol/L (22-30); Chloride 102 mmol/L (98-107); Glucose 151 mg/dL (74-99); Lipase 65 U/L (23-300); Non-African American GFR(CKD) >90 (>60 ml/min/1.73 sqM); Potassium 4.4 mmol/L (3.5-5.1); Sodium 135 mmol/L (137-145); Total Bilirubin 1.2 mg/dL (0.2-1.3); Total Protein 6.7 g/dL (6.3-8.2)
--- NOTE | 2025-03-30 16:41 | CT ---
EXAMINATION TYPE: CT abdomen pelvis wo con DATE OF EXAM: 03/30/2025 4:31 PM COMPARISON: CT abdomen/pelvis 05/02/2022. CLINICAL INDICATION: Male, 65 years old with history of Right flank pain, history of stones; RIGHT FL ANK PAIN, HX OF RENAL STONES, N/V SINCE 0200 THIS AM TECHNIQUE: Axial CT abdomen pelvis wo con;Sagittal and coronal reformats were created on a separate workstation. Oral contrast used: without Oral Contrast (none if empty) CT DLP: 538.6 mGycm, Automated exposure control for dose reduction was used. FINDINGS: LOWER CHEST: Unremarkable ABDOMEN LIVER: Unremarkable GALLBLADDER AND BILE DUCTS: The gallbladder is surgically absent. PANCREAS: Unremarkable. SPLEEN: Unremarkable. ADRENAL GLANDS: Unremarkable. KIDNEYS AND URETERS: Right UVJ 4 mm calculus causing mild hydroureteronephrosis and associated right perinephric fat standing/acute inflammatory changes. No evidence of left-sided hydronephrosis. Puncta te calculi in the right kidney. No definite left-sided nephrolithiasis. PELVIS BLADDER: No evidence for wall thickening or mass given limitations of exam. REPRODUCTIVE: Unremarkable. ABDOMEN & PELVIS STOMACH AND BOWEL: Moderate sized hiatal hernia and postsurgical changes suggesting previously gastre ctomy. PERITONEUM/RETROPERITONEUM: No evidence of pneumoperitoneum or free fluid. VASCULATURE: No evidence of aortic aneurysm. MUSCULOSKELETAL: No acute osseous abnormalities. Grade 1 anterolisthesis of L4 on L5. LYMPH NODES: No gross evidence for lymphadenopathy. SOFT TISSUE/ABDOMINAL WALL: Diffuse subcutaneous edema/anasarca. IMPRESSION: 1. Right UVJ 4 mm calculus causing mild upstream hydroureteronephrosis and associated right perineph rai acute inflammation. 2. Additional nonobstructing small right renal calculi. 3. No acute findings as above. [facility], , 03/30/2025 4:39 PM
[2025-03-30] MEDS: TAMSULOSIN 0.4 MG CAP.ER.24H PO STA (17:30)
== END 2025-03-30 17:39 | disposition home or self-care (01) ==
LOC: EC 14:32
DX: N13.2 Hydronephrosis with renal and ureteral calculous obstruction (principal); F17.200 Nicotine dependence, unspecified, uncomplicated
CPT/HCPCS: 36415; 80053; 83605; 83690; 85025; 81001; 74176; 99284; 96374; 96375 ×2; 96361; J2270; J2405; J1885; S0119